=== PATIENT | female | born 1990 | race Caucasian/White ===

== ENCOUNTER 2016-09-11 15:43 | Inpatient (IN) | payer OTHER ==
[2016-09-11 16:12] VITALS: BMI 29.4
--- NOTE | 2016-09-11 18:50 | HP ---
Admission ROS [facility] Chief Complaint: I WANT TO GO TO REHAB Allergies/Adverse Reactions: Allergies Allergy/AdvReac Type Severity Reaction Status Date / Time No Known Allergies Allergy Verified 09/11/16 18:06 History of Present Illness: 26 YEARS OLD FEMALE WITH LONG HISTORY OF HEROIN NICOTINE DEPENDENCE, DENIES MEDICAL DENIES PSYCHIATRIC ISSUES LONGEST SOBRIETY IS 3 YEARS IS ADMITTED TO REHAB Exam Limitations: No Limitations - Ebola screening Have you traveled outside of the country in the last 21 days: No Have you had contact with anyone from an Ebola affected area: No Have you been sick,other than usual withdrawal symptoms: No Do you have a fever: No - Review of Systems Constitutional: No Symptoms Reported EENT: reports: No Symptoms Reported Respiratory: reports: No Symptoms reported Cardiac: reports: No Symptoms Reported GI: reports: No Symptoms Reported : reports: No Symptoms Reported Musculoskeletal: reports: No Symptoms Reported Integumentary: reports: No Symptoms Reported Neuro: reports: No Symptoms reported Endocrine: reports: No Symptoms Reported Hematology: reports: No Symptoms Reported Psychiatric: reports: Judgement Intact, Orientated x3, Depressed Other Systems: Reviewed and Negative Patient History - Patient Medical History Hx Anemia: No Hx Asthma: No Hx Chronic Obstructive Pulmonary Disease (COPD): No Hx Cancer: No Hx Cardiac Disorders: No Hx Congestive Heart Failure: No Hx Hypertension: No Hx Hypercholesterolemia: No Hx Pacemaker: No HX Cerebrovascular Accident: No Hx Seizures: No Hx Dementia: No Hx Diabetes: No Hx Gastrointestinal Disorders: No Hx Liver Disease: No Hx Genitourinary Disorders: No Hx Sexually Transmitted Disorders: No Hx Renal Disease (ESRD): No Hx Thyroid Disease: No Hx Human Immunodeficiency Virus (HIV): No Hx Hepatitis C: No Hx Depression: Yes Hx Suicide Attempt: No Hx Bipolar Disorder: No Hx Schizophrenia: No - Patient Surgical History Past Surgical History: Yes Hx Appendectomy: Yes (8 YEARS OLD) Hx Section: Yes (X 4) Other Surgical History: TUBERLIGATION Anesthesia Reaction: No - PPD History Previous Implant?: Yes Documented Results: Negative w/o proof Implanted On Prior R Admission?: No PPD to be Administered?: Yes - Reproductive History Patient is a Female of Child Bearing Age (11 -55 yrs old): Yes Last Menstrual Period: 08/11/16 Patient : No - Smoking Cessation Smoking history: Current every day smoker Have you smoked in the past 12 months: Yes Aproximately how many cigarettes per day: 20 Cigars Per Day: 0 Hx Chewing Tobacco Use: No Initiated information on smoking cessation: Yes 'Breaking Loose' booklet given: 09/11/16 - Substance & Tx. History Hx Alcohol Use: No Hx Substance Use: Yes Substance Use Type: Cocaine, Heroin, Opiates Hx Substance Use Treatment: Yes - Substances Abused Heroin Route: Injection Frequency: Daily Amount used: 60 BAGS Age of first use: 11 Date of Last Use: 09/06/16 Family Disease History - Family Disease History Family Disease History: Heart Disease: Father, CA: Mother (BREAST ) Admission Physical Exam [facility] - Vital Signs Vital Signs: Vital Signs - 24 hr 09/11/16 16:09 Temperature 98.9 F Pulse Rate 78 Respiratory 18 Rate Blood Pressure 110/63 - Physical General Appearance: Yes: No Apparent Distress, Nourished, Appropriately Dressed HEENTM: Yes: Hearing grossly Normal, Normal ENT Inspection, Normocephalic, Normal Voice Respiratory: Yes: Chest Non-Tender, Lungs Clear, Normal Breath Sounds, No Respiratory Distress, No Accessory Muscle Use Neck: Yes: Supple, Trachea in good position Breast: Yes: Breasts Symetrical Cardiology: Yes: Regular Rhythm, Regular Rate, S1, S2 Abdominal: Yes: Non Tender, Soft Genitourinary: Yes: Within Normal Limits Back: Yes: Normal Inspection Musculoskeletal: Yes: full range of Motion, Gait Steady Extremities: Yes: Normal Range of Motion, Non-Tender, Other (IV HEROIN) Neurological: Yes: Fully Oriented, Alert, Motor Strength 5/5, Normal Response, Depressed Affect Integumentary: Yes: Warm, Track Bautista Lymphatic: Yes: Within Normal Limits - Diagnostic (1) Opioid dependence with withdrawal Current Visit: Yes Status: Acute (2) Nicotine dependence Current Visit: Yes Status: Acute Qualifiers: Nicotine product type: cigarettes Substance use status: uncomplicated Qualified Code(s): F17.210 - Nicotine dependence, cigarettes, uncomplicated (3) Depression (emotion) Current Visit: Yes Status: Suspected Qualifiers: Depression Type: dysthymia Qualified Code(s): F34.1 - Dysthymic disorder Cleared for Admission [facility] - Detox or Rehab [facility] Level of Care: Observation Bed Claeared for Rehab Admission: Yes [facility] Breath Alcohol Content Breath Alcohol Content: 0 Urine Pregancy Test - Result Urine Test Results: Negative- NO Line Present Urine Drug Screen - Results Drug Screen Negative: No Urine Drug Screen Results: FELIX-Cocaine, OPI-Opiates, MTD-Methadone
[2016-09-11] MEDS ORDERED: LOPERAMIDE HCL 2 MG CAPSULE PO PRN (18:52)
[2016-09-11] MEDS ORDERED: guaiFENesin/D-METHORPHAN HB 10 ML UNIT-DOSE CUPS PO PRN (18:52)
[2016-09-11] MEDS ORDERED: MAG HYDROX/AL HYDROX/SIMETH 30 ML UNIT-DOSE CUP PO PRN (18:52)
[2016-09-11] MEDS ORDERED: MAGNESIUM CITRATE 300 ML BOTTLE PO PRN (18:52)
[2016-09-11] MEDS ORDERED: MAGNESIUM HYDROX 2400MG/30ML ORAL SUSPENSION 30 ML CUP PO PRN (18:52)
[2016-09-11] MEDS ORDERED: MENTHOL/PHENOL 1 EACH UD MM PRN (18:52)
[2016-09-11] MEDS ORDERED: NICOTINE POLACRILEX 2 MG GUM BC PRN (18:52)
[2016-09-11] MEDS ORDERED: P-EPHED 60MG/TRIPROLIDI 2.5MG TABLET PO PRN (18:52)
[2016-09-11] MEDS ORDERED: TUBERCULIN PPD 5 TU/0.1ML VIAL ID ONE (19:00)
[2016-09-11 20:15] LABS: URINE APPEARANCE CLOUDY; URINE BILIRUBIN NEGATIVE (NEGATIVE); URINE BLOOD NEGATIVE (NEGATIVE); URINE COLOR YELLOW; URINE GLUCOSE (UA) NEGATIVE (NEGATIVE); URINE KETONE NEGATIVE (NEGATIVE); URINE NITRITE POSITIVE (NEGATIVE); URINE PROTEIN NEGATIVE (NEGATIVE); URINE UROBILINOGEN NEGATIVE E.U./dl (0.2-1.0)
[2016-09-11 20:26] LABS: URINE LEUK ESTERASE 2+ (NEGATIVE)
[2016-09-11 20:46] LABS: URINE BACTERIA RARE /hpf (NONE SEEN); URINE RBC 2 /hpf (0-3); URINE WBC 30 /hpf (3-5)
[2016-09-11 20:47] LABS: URINE MUCUS RARE
[2016-09-11] MEDS: diphenhydrAMINE HCL 50 MG CAPSULE PO PRN (21:35)
[2016-09-11] MEDS: THIAMINE HCL 100 MG TABLET (FP) PO SCH (21:35)
[2016-09-11] MEDS: IBUPROFEN 400 MG TABLET (FP) PO PRN (21:36)
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
[2016-09-12] MEDS: METHADONE HCL 40 MG DISPERSABLE TABLET PO SCH (07:47)
[2016-09-12] MEDS: IBUPROFEN 400 MG TABLET (FP) PO PRN ×2 (10:07→17:44)
[2016-09-12] MEDS: NICOTINE 21 MG/24 HOURS TOPICAL PATCH TD SCH (10:07)
[2016-09-12] MEDS: PRENATAL VITAMINS W/ FOLIC ACID TABLET (FP) PO SCH (10:07)
[2016-09-12 10:14] LABS: ALBUMIN 3.6 g/dl (3.4-5.0); ANION GAP 6 (8-16); BILIRUBIN,TOTAL 0.4 mg/dL (0.2-1.0); CALCIUM 8.7 mg/dL (8.5-10.1); CO2 28 mmol/L (21-32); CREATININE 0.8 mg/dL (0.55-1.02); GLUCOSE,RANDOM 82 mg/dL (74-106); SGOT/AST 11 U/L (15-37); SGPT/ALT 16 U/L (12-78)
[2016-09-12 10:15] LABS: ALK PHOS 77 U/L (45-117)
[2016-09-12 10:57] LABS: HIV 1 & 2 AB NEGATIVE; HIV 1 AGp24 NEGATIVE
[2016-09-12 11:05] LABS: MCH 29.4 pg (25.7-33.7); MCHC 33.2 g/dl (32.0-36.0); MEAN CELL VOLUME 88.6 fl (80-96); MEAN PLT VOLUME 7.6 fl (7.5-11.1); PLATELET COUNT 316 K/MM3 (134-434); RDW 15.5 % (11.6-15.6); WHITE BLOOD COUNT 8.1 K/mm3 (4.0-10.0)
[2016-09-12] MEDS ORDERED: PNEUMOCOCCAL 23 VACCINE 0.5 ML VIAL IM ONE (12:00)
[2016-09-12] MEDS ORDERED: INFLUENZA VACCINE 45 MCG/0.5 ML (MDV 16-17) IM ONE (12:00)
[2016-09-12] MEDS ORDERED: PNEUMOC 13-VAL CONJ-DIP CRM/PF 0.5 ML DISP.SYRIN IM ONE (12:00)
[2016-09-12] MEDS: THIAMINE HCL 100 MG TABLET (FP) PO SCH (21:25)
[2016-09-12] MEDS: diphenhydrAMINE HCL 50 MG CAPSULE PO PRN (21:25)
[2016-09-13] MEDS: METHADONE HCL 40 MG DISPERSABLE TABLET PO SCH (06:35)
[2016-09-13] MEDS: NICOTINE 21 MG/24 HOURS TOPICAL PATCH TD SCH (10:11)
[2016-09-13] MEDS: PRENATAL VITAMINS W/ FOLIC ACID TABLET (FP) PO SCH (10:11)
[2016-09-13] MEDS: IBUPROFEN 400 MG TABLET (FP) PO PRN ×2 (10:13→21:30)
--- NOTE | 2016-09-13 10:35 | EKG ---
Test Reason : Blood Pressure : / mmHG Vent. Rate : 073 BPM Atrial Rate : 073 BPM P-R Int : 130 ms QRS Dur : 084 ms QT Int : 410 ms P-R-T Axes : 050 046 033 degrees QTc Int : 451 ms NORMAL SINUS RHYTHM NORMAL ECG NO PREVIOUS ECGS AVAILABLE Confirmed by CLARISSE CONN MD ([id number]) on 09/13/2016 10:35:08 AM Referred By: Confirmed By:CLARISSE CONN MD
[2016-09-13] MEDS: THIAMINE HCL 100 MG TABLET (FP) PO SCH (21:29)
[2016-09-13] MEDS: diphenhydrAMINE HCL 50 MG CAPSULE PO PRN (21:29)
[2016-09-14] MEDS: METHADONE HCL 40 MG DISPERSABLE TABLET PO SCH (06:13)
[2016-09-14] MEDS: hydrOXYzine PAMOATE 50 MG CAPSULE (FP) PO PRN ×3 (06:27→21:14)
[2016-09-14] MEDS: NICOTINE 21 MG/24 HOURS TOPICAL PATCH TD SCH (10:02)
[2016-09-14] MEDS: PRENATAL VITAMINS W/ FOLIC ACID TABLET (FP) PO SCH (10:02)
[2016-09-14] MEDS: THIAMINE HCL 100 MG TABLET (FP) PO SCH (21:13)
[2016-09-14] MEDS: diphenhydrAMINE HCL 50 MG CAPSULE PO PRN (23:22)
[2016-09-15] MEDS: METHADONE HCL 40 MG DISPERSABLE TABLET PO SCH (06:57)
[2016-09-15] MEDS: IBUPROFEN 400 MG TABLET (FP) PO PRN ×2 (07:00→22:18)
[2016-09-15] MEDS: hydrOXYzine PAMOATE 50 MG CAPSULE (FP) PO PRN ×4 (07:02→21:05)
[2016-09-15] MEDS: PRENATAL VITAMINS W/ FOLIC ACID TABLET (FP) PO SCH (09:56)
[2016-09-15] MEDS: NICOTINE 21 MG/24 HOURS TOPICAL PATCH TD SCH (09:56)
[2016-09-15] MEDS: THIAMINE HCL 100 MG TABLET (FP) PO SCH (21:05)
[2016-09-15] MEDS: diphenhydrAMINE HCL 50 MG CAPSULE PO PRN (22:18)
[2016-09-16] MEDS: METHADONE HCL 40 MG DISPERSABLE TABLET PO SCH (06:22)
[2016-09-16] MEDS: IBUPROFEN 400 MG TABLET (FP) PO PRN ×2 (06:25→23:06)
[2016-09-16] MEDS: hydrOXYzine PAMOATE 50 MG CAPSULE (FP) PO PRN ×3 (06:25→21:01)
[2016-09-16] MEDS: NICOTINE 21 MG/24 HOURS TOPICAL PATCH TD SCH (09:55)
[2016-09-16] MEDS: PRENATAL VITAMINS W/ FOLIC ACID TABLET (FP) PO SCH (09:55)
[2016-09-16] MEDS: THIAMINE HCL 100 MG TABLET (FP) PO SCH (21:01)
[2016-09-16] MEDS: diphenhydrAMINE HCL 50 MG CAPSULE PO PRN (23:06)
[2016-09-17] MEDS: METHADONE HCL 40 MG DISPERSABLE TABLET PO SCH (06:17)
[2016-09-17] MEDS: hydrOXYzine PAMOATE 50 MG CAPSULE (FP) PO PRN ×4 (06:22→21:29)
[2016-09-17] MEDS: IBUPROFEN 400 MG TABLET (FP) PO PRN (06:22)
[2016-09-17] MEDS: PRENATAL VITAMINS W/ FOLIC ACID TABLET (FP) PO SCH (10:05)
[2016-09-17] MEDS: NICOTINE 21 MG/24 HOURS TOPICAL PATCH TD SCH (10:06)
[2016-09-17] MEDS: THIAMINE HCL 100 MG TABLET (FP) PO SCH (21:29)
[2016-09-18] MEDS: METHADONE HCL 40 MG DISPERSABLE TABLET PO SCH (06:06)
[2016-09-18] MEDS: IBUPROFEN 400 MG TABLET (FP) PO PRN ×3 (06:09→20:40)
[2016-09-18] MEDS: hydrOXYzine PAMOATE 50 MG CAPSULE (FP) PO PRN ×4 (06:09→19:32)
[2016-09-18] MEDS: NICOTINE 21 MG/24 HOURS TOPICAL PATCH TD SCH (10:10)
[2016-09-18] MEDS: PRENATAL VITAMINS W/ FOLIC ACID TABLET (FP) PO SCH (10:10)
[2016-09-18] MEDS ORDERED: LIDOCAINE VISCOUS 2% ORAL/TOP 20 ML UNIT-DOSE CUP MM PRN (15:49)
[2016-09-18] MEDS: THIAMINE HCL 100 MG TABLET (FP) PO SCH (21:48)
[2016-09-19] MEDS: ACETAMINOPHEN 325 MG TABLET (FP) PO PRN (01:33)
[2016-09-19] MEDS: hydrOXYzine PAMOATE 50 MG CAPSULE (FP) PO PRN ×5 (01:33→21:08)
[2016-09-19] MEDS: METHADONE HCL 40 MG DISPERSABLE TABLET PO SCH (06:07)
[2016-09-19] MEDS: IBUPROFEN 400 MG TABLET (FP) PO PRN ×3 (06:07→17:00)
[2016-09-19] MEDS: PRENATAL VITAMINS W/ FOLIC ACID TABLET (FP) PO SCH (10:12)
[2016-09-19] MEDS: NICOTINE 21 MG/24 HOURS TOPICAL PATCH TD SCH (10:13)
[2016-09-19] MEDS: THIAMINE HCL 100 MG TABLET (FP) PO SCH (21:06)
[2016-09-20] MEDS: METHADONE HCL 40 MG DISPERSABLE TABLET PO SCH (06:34)
[2016-09-20] MEDS: IBUPROFEN 400 MG TABLET (FP) PO PRN ×2 (06:35→15:34)
[2016-09-20] MEDS: hydrOXYzine PAMOATE 50 MG CAPSULE (FP) PO PRN ×4 (06:35→20:03)
[2016-09-20] MEDS: PRENATAL VITAMINS W/ FOLIC ACID TABLET (FP) PO SCH (10:45)
[2016-09-20] MEDS: NICOTINE 21 MG/24 HOURS TOPICAL PATCH TD SCH (10:45)
[2016-09-20] MEDS: ACETAMINOPHEN 325 MG TABLET (FP) PO PRN (10:47)
[2016-09-20] MEDS: THIAMINE HCL 100 MG TABLET (FP) PO SCH (21:20)
[2016-09-20] MEDS: diphenhydrAMINE HCL 50 MG CAPSULE PO PRN ×2 (21:20→22:56)
[2016-09-21] MEDS: METHADONE HCL 40 MG DISPERSABLE TABLET PO SCH (06:26)
[2016-09-21] MEDS: hydrOXYzine PAMOATE 50 MG CAPSULE (FP) PO PRN ×3 (06:28→21:22)
[2016-09-21] MEDS: NICOTINE 21 MG/24 HOURS TOPICAL PATCH TD SCH (10:10)
[2016-09-21] MEDS: PRENATAL VITAMINS W/ FOLIC ACID TABLET (FP) PO SCH (10:10)
[2016-09-21] MEDS: THIAMINE HCL 100 MG TABLET (FP) PO SCH (21:22)
[2016-09-21] MEDS: IBUPROFEN 400 MG TABLET (FP) PO PRN (21:23)
[2016-09-21] MEDS: diphenhydrAMINE HCL 50 MG CAPSULE PO PRN (23:21)
[2016-09-22] MEDS: hydrOXYzine PAMOATE 50 MG CAPSULE (FP) PO PRN ×4 (06:13→22:11)
[2016-09-22] MEDS: METHADONE HCL 40 MG DISPERSABLE TABLET PO SCH (06:13)
[2016-09-22] MEDS: PRENATAL VITAMINS W/ FOLIC ACID TABLET (FP) PO SCH (10:03)
[2016-09-22] MEDS: NICOTINE 21 MG/24 HOURS TOPICAL PATCH TD SCH (10:03)
[2016-09-22] MEDS: IBUPROFEN 400 MG TABLET (FP) PO PRN (14:22)
[2016-09-22] MEDS: THIAMINE HCL 100 MG TABLET (FP) PO SCH (21:21)
[2016-09-22] MEDS: diphenhydrAMINE HCL 50 MG CAPSULE PO PRN (21:21)
[2016-09-23] MEDS: hydrOXYzine PAMOATE 50 MG CAPSULE (FP) PO PRN ×4 (06:19→21:08)
[2016-09-23] MEDS: METHADONE HCL 40 MG DISPERSABLE TABLET PO SCH (06:19)
[2016-09-23] MEDS: PRENATAL VITAMINS W/ FOLIC ACID TABLET (FP) PO SCH (09:56)
[2016-09-23] MEDS: NICOTINE 21 MG/24 HOURS TOPICAL PATCH TD SCH (09:57)
[2016-09-23] MEDS: IBUPROFEN 400 MG TABLET (FP) PO PRN (14:59)
[2016-09-23] MEDS: THIAMINE HCL 100 MG TABLET (FP) PO SCH (21:08)
[2016-09-23] MEDS: diphenhydrAMINE HCL 50 MG CAPSULE PO PRN (23:19)
[2016-09-24] MEDS ORDERED: METHADONE HCL 10 MG TABLET ONE (05:06)
[2016-09-24] MEDS ORDERED: METHADONE HCL 40 MG DISPERSABLE TABLET ONE (05:06)
[2016-09-24] MEDS ORDERED: METHADONE HCL 40 MG DISPERSABLE TABLET PO SCH ×2 (06:00)
[2016-09-24] MEDS ORDERED: METHADONE 80 MG, METHADONE 30 MG PO SCH (06:00)
[2016-09-24] MEDS: hydrOXYzine PAMOATE 50 MG CAPSULE (FP) PO PRN ×4 (06:22→21:11)
[2016-09-24] MEDS: NICOTINE 21 MG/24 HOURS TOPICAL PATCH TD SCH (10:12)
[2016-09-24] MEDS: PRENATAL VITAMINS W/ FOLIC ACID TABLET (FP) PO SCH (10:12)
--- NOTE | 2016-09-24 13:47 | PN ---
[facility] Progress Note Note: pt felt uncomfortable on her requested lower dose of methadone 110mg . Pt now requested her usual dose of 120mg /d
[2016-09-24] MEDS: THIAMINE HCL 100 MG TABLET (FP) PO SCH (21:11)
[2016-09-24] MEDS: diphenhydrAMINE HCL 50 MG CAPSULE PO PRN (22:02)
[2016-09-25] MEDS: METHADONE HCL 40 MG DISPERSABLE TABLET PO SCH (06:20)
[2016-09-25] MEDS: hydrOXYzine PAMOATE 50 MG CAPSULE (FP) PO PRN ×4 (06:24→21:09)
[2016-09-25] MEDS: PRENATAL VITAMINS W/ FOLIC ACID TABLET (FP) PO SCH (10:00)
[2016-09-25] MEDS: NICOTINE 21 MG/24 HOURS TOPICAL PATCH TD SCH (10:00)
--- NOTE | 2016-09-25 12:32 | PN ---
Psychiatric Progress Note Vital Signs: Vital Signs Period Temp Pulse Resp BP Sys/Calles Pulse Ox Last 24 Hr 98.2 F 81 18-18 104/68 Date of Session: 09/25/16 Chief Complaint:: Insomnia HPI: Patient addressing Opoid Dependence comorbid with Nicotine Dependence ROS: S/P Tubal ligation Current Medications: Active Medications Generic Name Dose Route Start Last Admin Trade Name Freq PRN Reason Stop Dose Admin Acetaminophen 650 mg 09/11/16 18:52 09/20/16 10:47 Tylenol - PO 650 mg Q4H PRN Administration PAIN Al Hydroxide/Mg Hydroxide 30 ml 09/11/16 18:52 Mylanta Oral Suspension - PO Q6H PRN DYSPEPSIA Diphenhydramine HCl 50 mg 09/11/16 18:52 09/24/16 22:02 Benadryl - PO 50 mg HSMR1 PRN Administration INSOMNIA Eucalyptus/Menthol/Phenol/Sorbitol 1 each 09/11/16 18:52 Cepastat Lozenge - MM Q4H PRN SORE THROAT Guaifenesin 10 ml 09/11/16 18:52 Robitussin Dm - PO Q6H PRN COUGH Hydroxyzine Pamoate 50 mg 09/11/16 18:52 09/25/16 10:00 Vistaril - PO 50 mg Q4H PRN Administration AGITATION Ibuprofen 400 mg 09/11/16 18:52 09/23/16 14:59 Motrin - PO 400 mg Q6H PRN Administration SEVERE PAIN Lidocaine HCl 20 ml 09/18/16 15:49 09/18/16 22:14 Xylocaine 2% Viscous Oral - MM 20 ml Q6HPO PRN Administration ORAL PAIN/MOUTH SORES Loperamide HCl 4 mg 09/11/16 18:52 Imodium - PO Q6H PRN DIARRHEA Magnesium Citrate 300 ml 09/11/16 18:52 Citroma - PO Q48H PRN CONSTIPATION Magnesium Hydroxide 30 ml 09/11/16 18:52 Milk Of Magnesia - PO DAILY PRN CONSTIPATION Methadone HCl 120 mg 09/25/16 06:00 09/25/16 06:20 Dolophine - PO 120 mg DAILY@0600 MERARI Administration Nicotine 21 mg 09/12/16 10:00 09/25/16 10:00 Nicoderm Patch - TD 21 mg DAILY MERARI Administration Nicotine Polacrilex 2 mg 09/11/16 18:52 Nicorette Gum - BC Q2H PRN NICOTINE REPLACEMENT RX Multivit/Folic Acid/Iron 1 tab 09/12/16 10:00 09/25/16 10:00 Vitamins (Sjr) - PO 1 tab DAILY MERARI Administration Pseudoephedrine/Triprolidine 1 combo 09/11/16 18:52 Actifed - PO TID PRN NASAL CONGESTION Thiamine HCl 100 mg 09/11/16 22:00 09/24/16 21:11 Vitamin B1 - PO 100 mg HS MERARI Administration Medication(s) Change(s): Start Trazadone 100 mg po HS Current Side Effect: No Lab tests ordered: Yes Lab tests reviewed: Yes Provider note:: Patient reports experiencing difficulty to sleep. Told aligner typewriter that she has not been able to sleep well despite taking Benadryl 50 mg po at bedtime. Consequently, she has not been able to stay fully awake during the day and often sleeps when attending group impacting on her group participation. Requests to be order sleep med stronger than Benadryl. Benefits vs Risks of Trazadone in addition to sleep hygiene was discussed with patient and she agreed to try it Total face to face time:: 25 Mental Status Exam - Mental Status Exam Alert and Oriented to: Time, Place, Person Cognitive Function: Fair Patient Appearance: Well Groomed Mood: Hopeful, Euthymic Affect: Appropriate Patient Behavior: Cooperative Speech Pattern: Clear Voice Loudness: Normal Thought Process: Intact Thought Disorder: Not Present Hallucinations: Denies Suicidal Ideation: Denies Homicidal Ideation: Denies Insight/Judgement: Fair Sleep: Poorly Appetite: Good Muscle strength/Tone: Normal Gait/Station: Normal Psychiatric Treatment Plan - Problem List (1) Opioid dependence with withdrawal Current Visit: Yes (2) Nicotine dependence Current Visit: Yes Qualifiers: Nicotine product type: cigarettes Substance use status: uncomplicated Qualified Code(s): F17.210 - Nicotine dependence, cigarettes, uncomplicated Initial treatment plan: 1) Start Trazadone 100 mg po HS. 2) Monitor progress
[2016-09-25] MEDS: traZODone HCL 100 MG TABLET (FP) PO SCH (21:08)
[2016-09-25] MEDS: THIAMINE HCL 100 MG TABLET (FP) PO SCH (21:08)
[2016-09-26] MEDS: hydrOXYzine PAMOATE 50 MG CAPSULE (FP) PO PRN ×4 (06:40→21:14)
[2016-09-26] MEDS: METHADONE HCL 40 MG DISPERSABLE TABLET PO SCH (06:40)
[2016-09-26] MEDS: NICOTINE 21 MG/24 HOURS TOPICAL PATCH TD SCH (10:02)
[2016-09-26] MEDS: PRENATAL VITAMINS W/ FOLIC ACID TABLET (FP) PO SCH (10:02)
[2016-09-26] MEDS: THIAMINE HCL 100 MG TABLET (FP) PO SCH (21:14)
[2016-09-26] MEDS: traZODone HCL 100 MG TABLET (FP) PO SCH (21:14)
[2016-09-26] MEDS: diphenhydrAMINE HCL 50 MG CAPSULE PO PRN (22:38)
[2016-09-27] MEDS: METHADONE HCL 40 MG DISPERSABLE TABLET PO SCH (06:13)
[2016-09-27] MEDS: hydrOXYzine PAMOATE 50 MG CAPSULE (FP) PO PRN ×3 (06:17→14:02)
[2016-09-27] MEDS: PRENATAL VITAMINS W/ FOLIC ACID TABLET (FP) PO SCH (10:03)
[2016-09-27] MEDS: NICOTINE 21 MG/24 HOURS TOPICAL PATCH TD SCH (10:03)
[2016-09-27] MEDS: diphenhydrAMINE HCL 50 MG CAPSULE PO PRN ×2 (21:24→23:50)
[2016-09-27] MEDS: traZODone HCL 100 MG TABLET (FP) PO SCH (21:24)
[2016-09-27] MEDS: THIAMINE HCL 100 MG TABLET (FP) PO SCH (21:24)
[2016-09-28] MEDS: hydrOXYzine PAMOATE 50 MG CAPSULE (FP) PO PRN ×4 (06:19→21:18)
[2016-09-28] MEDS: METHADONE HCL 40 MG DISPERSABLE TABLET PO SCH (06:19)
[2016-09-28] MEDS: PRENATAL VITAMINS W/ FOLIC ACID TABLET (FP) PO SCH (10:03)
[2016-09-28] MEDS: NICOTINE 21 MG/24 HOURS TOPICAL PATCH TD SCH (10:03)
[2016-09-28] MEDS: DOCUSATE SODIUM 100 MG CAPSULE (FP) PO PRN ×2 (10:04→21:18)
[2016-09-28] MEDS: IBUPROFEN 400 MG TABLET (FP) PO PRN (20:07)
[2016-09-28] MEDS: THIAMINE HCL 100 MG TABLET (FP) PO SCH (21:18)
[2016-09-28] MEDS: traZODone HCL 100 MG TABLET (FP) PO SCH (21:18)
[2016-09-28] MEDS: diphenhydrAMINE HCL 50 MG CAPSULE PO PRN (22:34)
[2016-09-29] MEDS: METHADONE HCL 40 MG DISPERSABLE TABLET PO SCH (06:49)
[2016-09-29] MEDS: hydrOXYzine PAMOATE 50 MG CAPSULE (FP) PO PRN ×4 (06:49→21:29)
[2016-09-29] MEDS: NICOTINE 21 MG/24 HOURS TOPICAL PATCH TD SCH (10:36)
[2016-09-29] MEDS: PRENATAL VITAMINS W/ FOLIC ACID TABLET (FP) PO SCH (10:36)
[2016-09-29] MEDS: DOCUSATE SODIUM 100 MG CAPSULE (FP) PO PRN (14:04)
[2016-09-29] MEDS: IBUPROFEN 400 MG TABLET (FP) PO PRN (20:05)
[2016-09-29] MEDS: traZODone HCL 100 MG TABLET (FP) PO SCH (21:29)
[2016-09-29] MEDS: THIAMINE HCL 100 MG TABLET (FP) PO SCH (21:29)
[2016-09-29] MEDS: diphenhydrAMINE HCL 50 MG CAPSULE PO PRN (22:33)
[2016-09-30] MEDS: hydrOXYzine PAMOATE 50 MG CAPSULE (FP) PO PRN ×3 (06:10→14:10)
[2016-09-30] MEDS: METHADONE HCL 40 MG DISPERSABLE TABLET PO SCH (06:10)
[2016-09-30] MEDS: DOCUSATE SODIUM 100 MG CAPSULE (FP) PO PRN (06:13)
[2016-09-30] MEDS: NICOTINE 21 MG/24 HOURS TOPICAL PATCH TD SCH (10:02)
[2016-09-30] MEDS: PRENATAL VITAMINS W/ FOLIC ACID TABLET (FP) PO SCH (10:03)
[2016-09-30] MEDS: LACTULOSE 20 GM/30 ML UDC (FOR ORAL USE ONLY) PO PRN (14:10)
[2016-09-30] MEDS: diphenhydrAMINE HCL 50 MG CAPSULE PO PRN (21:01)
[2016-09-30] MEDS: THIAMINE HCL 100 MG TABLET (FP) PO SCH (21:01)
[2016-09-30] MEDS: traZODone HCL 100 MG TABLET (FP) PO SCH (21:01)
[2016-10-01] MEDS: METHADONE HCL 40 MG DISPERSABLE TABLET PO SCH (06:30)
[2016-10-01] MEDS: hydrOXYzine PAMOATE 50 MG CAPSULE (FP) PO PRN ×3 (06:30→13:14)
--- NOTE | 2016-10-01 07:46 | PN ---
Psychiatric Progress Note Vital Signs: Vital Signs Period Temp Pulse Resp BP Sys/Calles Pulse Ox Last 24 Hr 98.2 F 93 16-20 109/67 Date of Session: 10/01/16 Chief Complaint:: Psychiatrist Discharge Note HPI: Patient addressing Opoid Dependence comorbid Nicotine Dependence ROS: S/P Tubal ligation Current Medications: Active Medications Generic Name Dose Route Start Last Admin Trade Name Freq PRN Reason Stop Dose Admin Al Hydroxide/Mg Hydroxide 30 ml 09/11/16 18:52 Mylanta Oral Suspension - PO Q6H PRN DYSPEPSIA Diphenhydramine HCl 50 mg 09/11/16 18:52 09/30/16 21:01 Benadryl - PO 50 mg HSMR1 PRN Administration INSOMNIA Eucalyptus/Menthol/Phenol/Sorbitol 1 each 09/11/16 18:52 Cepastat Lozenge - MM Q4H PRN SORE THROAT Guaifenesin 10 ml 09/11/16 18:52 Robitussin Dm - PO Q6H PRN COUGH Hydroxyzine Pamoate 50 mg 09/11/16 18:52 10/01/16 06:30 Vistaril - PO 50 mg Q4H PRN Administration AGITATION Ibuprofen 400 mg 09/11/16 18:52 09/29/16 20:05 Motrin - PO 400 mg Q6H PRN Administration SEVERE PAIN Lactulose 20 gm 09/30/16 13:25 09/30/16 14:10 Cephulac (Oral Use) PO 20 gm TID PRN Administration CONSTIPATION Lidocaine HCl 20 ml 09/18/16 15:49 09/18/16 22:14 Xylocaine 2% Viscous Oral - MM 20 ml Q6HPO PRN Administration ORAL PAIN/MOUTH SORES Loperamide HCl 4 mg 09/11/16 18:52 Imodium - PO Q6H PRN DIARRHEA Magnesium Citrate 300 ml 09/11/16 18:52 09/29/16 21:30 Citroma - PO 300 ml Q48H PRN Administration CONSTIPATION Magnesium Hydroxide 30 ml 09/11/16 18:52 09/29/16 10:38 Milk Of Magnesia - PO 30 ml DAILY PRN Administration CONSTIPATION Methadone HCl 120 mg 10/01/16 06:00 10/01/16 06:30 Dolophine - PO 10/07/16 05:59 120 mg DAILY@0600 MERARI Administration Nicotine 21 mg 09/12/16 10:00 09/30/16 10:02 Nicoderm Patch - TD 21 mg DAILY MERARI Administration Nicotine Polacrilex 2 mg 09/11/16 18:52 Nicorette Gum - BC Q2H PRN NICOTINE REPLACEMENT RX Multivit/Folic Acid/Iron 1 tab 09/12/16 10:00 09/30/16 10:03 Vitamins (Sjr) - PO 1 tab DAILY MERARI Administration Pseudoephedrine/Triprolidine 1 combo 09/11/16 18:52 Actifed - PO TID PRN NASAL CONGESTION Thiamine HCl 100 mg 09/11/16 22:00 09/30/16 21:01 Vitamin B1 - PO 100 mg HS MERARI Administration Trazodone HCl 100 mg 09/25/16 22:00 09/30/16 21:01 Desyrel - PO 100 mg HS MERARI Administration Current Side Effect: No Lab tests ordered: Yes Lab tests reviewed: Yes Provider note:: Patient will complete this program on 10/02/16. She has met her treatment goals and will continue to address his issues in outpatient treatment at [facility]. She verbalized understanding of the negative consequences of her addiction and from her participation in this program, she has learned to identify her triggers. She responded well to Trazadone 100 mg po HS for insomnia. Script for 30 days supply of that medication will be electronically transmitted to [facility] at [address] [place] [address]. She is stable for discharge on Total face to face time:: 35 Mental Status Exam - Mental Status Exam Alert and Oriented to: Time, Place, Person Cognitive Function: Fair Patient Appearance: Well Groomed Mood: Hopeful, Euthymic Affect: Appropriate Patient Behavior: Cooperative Speech Pattern: Clear Voice Loudness: Normal Thought Process: Intact Thought Disorder: Not Present Hallucinations: Denies Suicidal Ideation: Denies Homicidal Ideation: Denies Insight/Judgement: Fair Sleep: Fair Appetite: Good Muscle strength/Tone: Normal Gait/Station: Normal Psychiatric Treatment Plan - Problem List (1) Opioid dependence with withdrawal Current Visit: Yes (2) Nicotine dependence Current Visit: Yes Qualifiers: Nicotine product type: cigarettes Substance use status: uncomplicated Qualified Code(s): F17.210 - Nicotine dependence, cigarettes, uncomplicated Initial treatment plan: Patient will be discharged tomorrow and [facility]
[2016-10-01] MEDS: PRENATAL VITAMINS W/ FOLIC ACID TABLET (FP) PO SCH (09:51)
[2016-10-01] MEDS: NICOTINE 21 MG/24 HOURS TOPICAL PATCH TD SCH (09:51)
[2016-10-01] MEDS: LACTULOSE 20 GM/30 ML UDC (FOR ORAL USE ONLY) PO PRN ×2 (09:53→21:08)
[2016-10-01] MEDS: IBUPROFEN 400 MG TABLET (FP) PO PRN (13:14)
[2016-10-01] MEDS: traZODone HCL 100 MG TABLET (FP) PO SCH (21:06)
[2016-10-01] MEDS: diphenhydrAMINE HCL 50 MG CAPSULE PO PRN (21:06)
[2016-10-01] MEDS: THIAMINE HCL 100 MG TABLET (FP) PO SCH (21:06)
[2016-10-02] MEDS: hydrOXYzine PAMOATE 50 MG CAPSULE (FP) PO PRN ×2 (06:10→09:30)
[2016-10-02] MEDS: METHADONE HCL 40 MG DISPERSABLE TABLET PO SCH (06:11)
[2016-10-02 06:45] VITALS: BP 106/58; PULSE 76; TEMP 97.6
[2016-10-02] MEDS: PRENATAL VITAMINS W/ FOLIC ACID TABLET (FP) PO SCH (09:30)
[2016-10-02] MEDS: NICOTINE 21 MG/24 HOURS TOPICAL PATCH TD SCH (09:31)
== END 2016-10-02 09:45 | disposition home or self-care (01) | DRG 772 ==
LOC: YASAS 15:43 → Y3W 18:53
PROVIDERS: ADMIT Psychiatry & Neurology Psychiatry; ATTEND Psychiatry & Neurology Psychiatry
PROC: HZ42ZZZ Group Counseling for Substance Abuse Treatment, Cognitive-Behavioral (ICD-10-PCS; principal; 2016-09-11)
DX: F11.23 Opioid dependence with withdrawal (principal); F17.210 Nicotine dependence, cigarettes, uncomplicated; F34.1 Dysthymic disorder
CPT/HCPCS: 36415; 80053; 81003; 81015; 85027; 86593; 86803; 87389; 87522; 90732; 93005; 93010; G0009

== ENCOUNTER 2017-07-14 19:36 | Inpatient (IN) | payer OTHER ==
[2017-07-14 21:46] VITALS: BMI 32.1
--- NOTE | 2017-07-14 21:59 | HP ---
<Mag Oconnor - Last Filed: 07/16/17 21:58> COWS - Scale Sweatin= Chills/Flushing Admission [facility] Chief Complaint: Heroin dependence Allergies/Adverse Reactions: Allergies Allergy/AdvReac Type Severity Reaction Status Date / Time No Known Allergies Allergy Verified 09/11/16 18:06 History of Present Illness: 26 years old female with complaint of heroin dependence is admitted to rehab. Patient is on MMTP at [facility] and she states that she took her methadone 90mg oral today. Dose is to be verified by the nurse. Exam Limitations: No Limitations - Ebola screening Have you traveled outside of the country in the last 21 days: No Have you had contact with anyone from an Ebola affected area: No Have you been sick,other than usual withdrawal symptoms: No Do you have a fever: No - Review of Systems Constitutional: No Symptoms Reported EENT: reports: No Symptoms Reported Respiratory: reports: No Symptoms reported Cardiac: reports: No Symptoms Reported GI: reports: No Symptoms Reported : reports: No Symptoms Reported Musculoskeletal: reports: No Symptoms Reported Integumentary: reports: No Symptoms Reported Neuro: reports: No Symptoms reported Endocrine: reports: No Symptoms Reported Hematology: reports: No Symptoms Reported Psychiatric: reports: Mood/Affect Appropiate, Orientated x3 Other Systems: Reviewed and Negative Patient History - Patient Medical History Hx Anemia: No Hx Asthma: No Hx Chronic Obstructive Pulmonary Disease (COPD): No Hx Cancer: No Hx Cardiac Disorders: No Hx Congestive Heart Failure: No Hx Hypertension: No Hx Hypercholesterolemia: No Hx Pacemaker: No HX Cerebrovascular Accident: No Hx Seizures: No Hx Dementia: No Hx Diabetes: No Hx Gastrointestinal Disorders: No Hx Liver Disease: No Hx Genitourinary Disorders: No Hx Sexually Transmitted Disorders: No Hx Renal Disease (ESRD): No Hx Thyroid Disease: No Hx Human Immunodeficiency Virus (HIV): No Hx Hepatitis C: No Hx Depression: No Hx Suicide Attempt: No Hx Bipolar Disorder: No Hx Schizophrenia: No - Patient Surgical History Past Surgical History: Yes Hx Neurologic Surgery: No Hx Cataract Extraction: No Hx Cardiac Surgery: No Hx Lung Surgery: No Hx Breast Surgery: No Hx Breast Biopsy: No Hx Abdominal Surgery: No Hx Appendectomy: Yes (8 YEARS OLD) Hx Cholecystectomy: No Hx Genitourinary Surgery: No Hx Section: Yes (X 4) Other Surgical History: TUBAL LIGATION October. Anesthesia Reaction: No - PPD History Previous Implant?: Yes Documented Results: Negative w/o proof PPD to be Administered?: Yes - Reproductive History Patient is a Female of Child Bearing Age (11 -55 yrs old): Yes Last Menstrual Period: 07/14/17 (Menstruating today) Patient : No - Smoking Cessation Smoking history: Current every day smoker Have you smoked in the past 12 months: Yes Aproximately how many cigarettes per day: 20 Cigars Per Day: 0 Hx Chewing Tobacco Use: No Initiated information on smoking cessation: Yes 'Breaking Loose' booklet given: 07/16/17 - Substance & Tx. History Hx Alcohol Use: No Hx Substance Use: Yes (Heroin, Marijuana, Methadone) Substance Use Type: Heroin, Marijuana Hx Substance Use Treatment: Yes ([facility] 09/10/2016) - Substances Abused Heroin Route: Inhalation Frequency: Daily Amount used: 10 bags Age of first use: 12 Date of Last Use: 07/12/17 Marijuana/Hashish Frequency: 3-6 times per week Amount used: 4 francisca Age of first use: 10 Date of Last Use: 07/13/17 Family Disease History - Family Disease History Family Disease History: Heart Disease: Father, CA: Mother (BREAST CA) Admission Physical Exam S - Vital Signs Vital Signs: Vital Signs - 24 hr 07/14/17 21:44 Temperature 96.9 F L Pulse Rate 74 Respiratory 18 Rate Blood Pressure 116/94 - Physical General Appearance: Yes: Within Normal Limits HEENTM: Yes: Within Normal Limits Respiratory: Yes: Lungs Clear, Normal Breath Sounds, No Respiratory Distress Neck: Yes: Supple Breast: Yes: Breast Exam Deferred, Surgical Scar (Lower abdomen scar) Cardiology: Yes: Regular Rhythm, Regular Rate, S1, S2 Abdominal: Yes: Normal Bowel Sounds, Non Tender, Soft Genitourinary: Yes: Within Normal Limits Back: Yes: Normal Inspection Musculoskeletal: Yes: Within Normal Limits Extremities: Yes: Within Normal Limits Neurological: Yes: Within Normal Limits Integumentary: Yes: Warm Lymphatic: Yes: Within Normal Limits - Diagnostic (1) Opioid dependence with withdrawal Current Visit: Yes Status: Chronic (2) Nicotine dependence Current Visit: Yes Status: Chronic QualifierTitle: Nicotine product type: cigarettes Substance use status: uncomplicated Qualified Code(s): F17.210 - Nicotine dependence, cigarettes, uncomplicated Cleared for Admission [facility] - [facility] Rehab [facility] Level of Care: Observation Bed Claeared for Rehab Admission: Yes [facility] Breath Alcohol Content Breath Alcohol Content: 0 Urine Drug Screen - Results Drug Screen Negative: No Urine Drug Screen Results: THC-Marijuana, OPI-Opiates, MTD-Methadone <Arthur Nathan - Last Filed: 07/17/17 12:56> COWS - Scale Resting Pulse: 0= [place] 80 or Below Sweatin= Chills/Flushing Restless Observation: 1= Difficult to Sit Still Pupil Size: 1= Pupils >than Normal Bone or Joint Aches: 1= Mild Discomfort Runny Nose/ Eye Tearin= Nasal Congestion GI Upset > 30mins: 2= Nausea/Diarrhea Tremor Observation: 2= Slight Tremor Visible Yawning Observation: 1= 1-2x During Session Anxiety or Irritability: 1=Feels Anxious/Irritable Goose Flesh Skin: 3=Piloerection COWS Score: 14 Admission Physical Exam [facility] - Vital Signs Vital Signs: Vital Signs - 24 hr 07/17/17 07/17/17 07/17/17 00:30 03:30 06:50 Temperature 98.0 F Pulse Rate 76 Respiratory 18 18 18 Rate Blood Pressure 104/69
[2017-07-14] MEDS ORDERED: guaiFENesin/D-METHORPHAN HB 10 ML UNIT-DOSE CUPS PO PRN (22:14)
[2017-07-14] MEDS ORDERED: ACETAMINOPHEN 325 MG TABLET (FP) PO PRN (22:14)
[2017-07-14] MEDS ORDERED: MAGNESIUM CITRATE 300 ML BOTTLE PO PRN (22:14)
[2017-07-14] MEDS ORDERED: MENTHOL/PHENOL 1 EACH UD MM PRN (22:14)
[2017-07-14] MEDS ORDERED: P-EPHED 60MG/TRIPROLIDI 2.5MG TABLET PO PRN (22:14)
[2017-07-14] MEDS ORDERED: LOPERAMIDE HCL 2 MG CAPSULE PO PRN (22:14)
[2017-07-14] MEDS ORDERED: MAG HYDROX/AL HYDROX/SIMETH 30 ML UNIT-DOSE CUP PO PRN (22:14)
[2017-07-14] MEDS ORDERED: NICOTINE POLACRILEX 2 MG GUM BC PRN (22:14)
[2017-07-15 00:15] LABS: URINE APPEARANCE SLCLOUDY; URINE BILIRUBIN NEGATIVE (NEGATIVE); URINE BLOOD NEGATIVE (NEGATIVE); URINE COLOR DKYELLOW; URINE GLUCOSE (UA) NEGATIVE (NEGATIVE); URINE KETONE TRACE (NEGATIVE); URINE NITRITE NEGATIVE (NEGATIVE); URINE PROTEIN NEGATIVE (NEGATIVE); URINE UROBILINOGEN NEGATIVE mg/dL (0.2-1.0)
[2017-07-15] MEDS: hydrOXYzine PAMOATE 50 MG CAPSULE (FP) PO PRN ×3 (02:28→21:13)
[2017-07-15] MEDS ORDERED: METHADONE HCL 40 MG DISPERSABLE TABLET PO SCH (06:00)
[2017-07-15] MEDS ORDERED: METHADONE HCL 10 MG TABLET ONE (06:55)
[2017-07-15] MEDS ORDERED: METHADONE HCL 40 MG DISPERSABLE TABLET ONE (06:56)
[2017-07-15] MEDS: METHADONE 80 MG, METHADONE 10 MG PO SCH (07:41)
[2017-07-15 09:56] LABS: MCH 29.2 pg (25.7-33.7); MCHC 33.2 g/dl (32.0-36.0); MEAN CELL VOLUME 88.1 fl (80-96); MEAN PLT VOLUME 9.4 fl (7.5-11.1); PLATELET COUNT 334 K/MM3 (134-434); RDW 14.8 % (11.6-15.6); WHITE BLOOD COUNT 9.8 K/mm3 (4.0-10.0)
[2017-07-15 10:17] LABS: ALBUMIN 3.4 g/dl (3.4-5.0); ANION GAP 11 (8-16); CALCIUM 8.1 mg/dL (8.5-10.1); CO2 24 mmol/L (21-32); CREATININE 0.8 mg/dL (0.55-1.02); GLUCOSE,RANDOM 94 mg/dL (74-106); SGPT/ALT 14 U/L (12-78)
[2017-07-15 10:19] LABS: ALK PHOS 80 U/L (45-117); BILIRUBIN,TOTAL 0.3 mg/dL (0.2-1.0); TOT PROT 6.7 g/dl (6.4-8.2)
--- NOTE | 2017-07-15 10:25 | EKG ---
Test Reason : Blood Pressure : / mmHG Vent. Rate : 068 BPM Atrial Rate : 068 BPM P-R Int : 136 ms QRS Dur : 088 ms QT Int : 430 ms P-R-T Axes : 059 046 036 degrees QTc Int : 457 ms NORMAL SINUS RHYTHM WITH SINUS ARRHYTHMIA NORMAL ECG WHEN COMPARED WITH ECG OF 11-SEP-2016 21:29, NO SIGNIFICANT CHANGE WAS FOUND Confirmed by VINCE DC MD ([id number]) on 07/15/2017 10:25:25 AM Referred By: Confirmed By:VINCE DC MD
[2017-07-15 10:26] LABS: SGOT/AST 14 U/L (15-37)
[2017-07-15] MEDS: PRENATAL VITAMINS W/ FOLIC ACID TABLET (FP) PO SCH (10:55)
[2017-07-15] MEDS: NICOTINE 14 MG/24 HOURS TOPICAL PATCH TD SCH (10:55)
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
[2017-07-15] MEDS ORDERED: FLU VACCINE QUAD 60 MCG/0.5 ML (MDV 17-18) IM ONE (12:00)
[2017-07-15 13:45] LABS: HIV 1 & 2 AB NEGATIVE; HIV 1 AGp24 NEGATIVE
[2017-07-15 18:01] LABS: URINE LEUK ESTERASE Negative (NEGATIVE)
[2017-07-15] MEDS: traZODone HCL 100 MG TABLET (FP) PO SCH (21:12)
[2017-07-15] MEDS: THIAMINE HCL 100 MG TABLET (FP) PO SCH (21:12)
[2017-07-16] MEDS ORDERED: METHADONE HCL 10 MG TABLET ONE (03:16)
[2017-07-16] MEDS ORDERED: METHADONE HCL 40 MG DISPERSABLE TABLET ONE (03:17)
[2017-07-16] MEDS: METHADONE 80 MG, METHADONE 10 MG PO SCH (06:34)
[2017-07-16] MEDS: hydrOXYzine PAMOATE 50 MG CAPSULE (FP) PO PRN ×3 (06:36→21:06)
[2017-07-16] MEDS: NICOTINE 14 MG/24 HOURS TOPICAL PATCH TD SCH (10:02)
[2017-07-16] MEDS: PRENATAL VITAMINS W/ FOLIC ACID TABLET (FP) PO SCH (10:02)
[2017-07-16] MEDS: DOCUSATE SODIUM 100 MG CAPSULE (FP) PO PRN (10:03)
[2017-07-16] MEDS: THIAMINE HCL 100 MG TABLET (FP) PO SCH (21:06)
[2017-07-16] MEDS: traZODone HCL 100 MG TABLET (FP) PO SCH (21:06)
[2017-07-17] MEDS ORDERED: METHADONE HCL 10 MG TABLET ONE (03:15)
[2017-07-17] MEDS ORDERED: METHADONE HCL 40 MG DISPERSABLE TABLET ONE (03:16)
[2017-07-17] MEDS: hydrOXYzine PAMOATE 50 MG CAPSULE (FP) PO PRN ×3 (06:24→21:09)
[2017-07-17] MEDS: METHADONE 80 MG, METHADONE 10 MG PO SCH (06:24)
[2017-07-17] MEDS: DOCUSATE SODIUM 100 MG CAPSULE (FP) PO PRN (10:02)
[2017-07-17] MEDS: NICOTINE 14 MG/24 HOURS TOPICAL PATCH TD SCH (10:02)
[2017-07-17] MEDS: PRENATAL VITAMINS W/ FOLIC ACID TABLET (FP) PO SCH (10:02)
[2017-07-17] MEDS: traZODone HCL 100 MG TABLET (FP) PO SCH (21:09)
[2017-07-17] MEDS: THIAMINE HCL 100 MG TABLET (FP) PO SCH (21:09)
[2017-07-17] MEDS: DOCUSATE SODIUM 100 MG CAPSULE (FP) PO SCH (21:09)
[2017-07-18] MEDS ORDERED: METHADONE HCL 10 MG TABLET ONE (05:51)
[2017-07-18] MEDS ORDERED: METHADONE HCL 40 MG DISPERSABLE TABLET ONE (05:52)
[2017-07-18] MEDS: hydrOXYzine PAMOATE 50 MG CAPSULE (FP) PO PRN ×2 (06:47→21:10)
[2017-07-18] MEDS: METHADONE 80 MG, METHADONE 10 MG PO SCH (06:47)
[2017-07-18] MEDS: DOCUSATE SODIUM 100 MG CAPSULE (FP) PO SCH ×2 (09:39→21:11)
[2017-07-18] MEDS: PRENATAL VITAMINS W/ FOLIC ACID TABLET (FP) PO SCH (09:39)
[2017-07-18] MEDS: NICOTINE 14 MG/24 HOURS TOPICAL PATCH TD SCH (09:39)
[2017-07-18] MEDS: traZODone HCL 100 MG TABLET (FP) PO SCH (21:10)
[2017-07-18] MEDS: THIAMINE HCL 100 MG TABLET (FP) PO SCH (21:11)
[2017-07-18] MEDS ORDERED: PT OWN MED DRAWER 7, Y5N ONE (23:12)
[2017-07-19] MEDS ORDERED: METHADONE HCL 40 MG DISPERSABLE TABLET ONE (05:47)
[2017-07-19] MEDS ORDERED: METHADONE HCL 10 MG TABLET ONE (05:47)
[2017-07-19] MEDS: METHADONE 80 MG, METHADONE 10 MG PO SCH (06:54)
[2017-07-19] MEDS: hydrOXYzine PAMOATE 50 MG CAPSULE (FP) PO PRN ×2 (06:56→21:15)
[2017-07-19] MEDS: PRENATAL VITAMINS W/ FOLIC ACID TABLET (FP) PO SCH (09:47)
[2017-07-19] MEDS: NICOTINE 14 MG/24 HOURS TOPICAL PATCH TD SCH (09:48)
[2017-07-19] MEDS: DOCUSATE SODIUM 100 MG CAPSULE (FP) PO SCH ×2 (09:48→21:15)
[2017-07-19] MEDS: THIAMINE HCL 100 MG TABLET (FP) PO SCH (21:15)
[2017-07-19] MEDS: traZODone HCL 100 MG TABLET (FP) PO SCH (21:16)
[2017-07-20] MEDS ORDERED: METHADONE HCL 10 MG TABLET ONE (05:49)
[2017-07-20] MEDS ORDERED: METHADONE HCL 40 MG DISPERSABLE TABLET ONE (05:49)
[2017-07-20] MEDS: METHADONE 80 MG, METHADONE 10 MG PO SCH (06:37)
[2017-07-20] MEDS: hydrOXYzine PAMOATE 50 MG CAPSULE (FP) PO PRN ×3 (06:39→21:04)
[2017-07-20] MEDS: DOCUSATE SODIUM 100 MG CAPSULE (FP) PO SCH ×2 (10:12→21:04)
[2017-07-20] MEDS: PRENATAL VITAMINS W/ FOLIC ACID TABLET (FP) PO SCH (10:12)
[2017-07-20] MEDS: NICOTINE 14 MG/24 HOURS TOPICAL PATCH TD SCH (10:14)
[2017-07-20] MEDS ORDERED: NICOTINE POLACRILEX 4 MG GUM BUC PRN (12:27)
[2017-07-20] MEDS: IBUPROFEN 400 MG TABLET (FP) PO PRN (20:18)
[2017-07-20] MEDS ORDERED: PT OWN MED DRAWER 7, Y5N ONE (20:52)
[2017-07-20] MEDS ORDERED: ALBUTEROL SO4 18 GM HFA INHALER IH ONE (20:54)
[2017-07-20] MEDS: THIAMINE HCL 100 MG TABLET (FP) PO SCH (21:04)
[2017-07-20] MEDS: traZODone HCL 100 MG TABLET (FP) PO SCH (21:04)
[2017-07-21] MEDS ORDERED: METHADONE HCL 10 MG TABLET ONE (03:14)
[2017-07-21] MEDS ORDERED: METHADONE HCL 40 MG DISPERSABLE TABLET ONE (03:15)
[2017-07-21] MEDS: METHADONE 80 MG, METHADONE 10 MG PO SCH (06:35)
[2017-07-21] MEDS: hydrOXYzine PAMOATE 50 MG CAPSULE (FP) PO PRN ×2 (06:36→21:09)
[2017-07-21] MEDS: DOCUSATE SODIUM 100 MG CAPSULE (FP) PO SCH ×2 (10:03→21:09)
[2017-07-21] MEDS: NICOTINE 14 MG/24 HOURS TOPICAL PATCH TD SCH (10:03)
[2017-07-21] MEDS: PRENATAL VITAMINS W/ FOLIC ACID TABLET (FP) PO SCH (10:04)
[2017-07-21] MEDS: IBUPROFEN 400 MG TABLET (FP) PO PRN (17:13)
[2017-07-21] MEDS: traZODone HCL 100 MG TABLET (FP) PO SCH (21:09)
[2017-07-21] MEDS: THIAMINE HCL 100 MG TABLET (FP) PO SCH (21:09)
[2017-07-22] MEDS ORDERED: METHADONE HCL 10 MG TABLET ONE (05:58)
[2017-07-22] MEDS ORDERED: METHADONE HCL 40 MG DISPERSABLE TABLET ONE (05:58)
[2017-07-22] MEDS: IBUPROFEN 400 MG TABLET (FP) PO PRN ×2 (06:01→21:10)
[2017-07-22] MEDS: METHADONE 80 MG, METHADONE 10 MG PO SCH (06:02)
[2017-07-22] MEDS: hydrOXYzine PAMOATE 50 MG CAPSULE (FP) PO PRN ×3 (06:02→21:10)
[2017-07-22] MEDS: PRENATAL VITAMINS W/ FOLIC ACID TABLET (FP) PO SCH (10:17)
[2017-07-22] MEDS: NICOTINE 14 MG/24 HOURS TOPICAL PATCH TD SCH (10:17)
[2017-07-22] MEDS: DOCUSATE SODIUM 100 MG CAPSULE (FP) PO SCH ×2 (10:17→21:09)
--- NOTE | 2017-07-22 15:59 | PN ---
Psychiatric Progress Note Vital Signs: Vital Signs Period Temp Pulse Resp BP Sys/Calles Pulse Ox Last 24 Hr 97.5 F 74 18-18 109/73 Date of Session: 07/22/17 Chief Complaint:: Javed still having sleeping difficulties. HPI: Patient addressed Opioid dependence comorbid with Substance induced mood/ sleep disorder. ROS: unremarkable Current Medications: Active Medications Generic Name Dose Route Start Last Admin Trade Name Freq PRN Reason Stop Dose Admin Acetaminophen 650 mg 07/14/17 22:14 Tylenol - PO Q4H PRN PAIN Al Hydroxide/Mg Hydroxide 30 ml 07/14/17 22:14 Mylanta Oral Suspension - PO Q6H PRN DYSPEPSIA Docusate Sodium 200 mg 07/17/17 22:00 07/22/17 10:17 Colace - PO 200 mg BID MERARI Administration Eucalyptus/Menthol/Phenol/Sorbitol 1 each 07/14/17 22:14 Cepastat Lozenge - MM Q4H PRN SORE THROAT Guaifenesin 10 ml 07/14/17 22:14 Robitussin Dm - PO Q6H PRN COUGH Hydroxyzine Pamoate 50 mg 07/14/17 22:14 07/22/17 10:18 Vistaril - PO 50 mg Q4H PRN Administration AGITATION Ibuprofen 400 mg 07/14/17 22:14 07/22/17 06:01 Motrin - PO 400 mg Q6H PRN Administration SEVERE PAIN Loperamide HCl 4 mg 07/14/17 22:14 Imodium - PO Q6H PRN DIARRHEA Magnesium Citrate 300 ml 07/14/17 22:14 Citroma - PO Q48H PRN CONSTIPATION Magnesium Hydroxide 30 ml 07/14/17 22:14 Milk Of Magnesia - PO DAILY PRN CONSTIPATION Methadone HCl 80 mg/ Methadone 90 mg 07/22/17 06:00 07/22/17 06:02 HCl 10 mg PO 07/28/17 05:59 90 mg DAILY@0600 MERARI Administration Nicotine 14 mg 07/15/17 10:00 07/22/17 10:17 Nicoderm Patch - TD 14 mg DAILY MERARI Administration Nicotine Polacrilex 4 mg 07/20/17 12:27 Nicorette Gum - BUC Q2H PRN NICOTINE REPLACEMENT RX Multivit/Folic Acid/Iron 1 tab 07/15/17 10:00 07/22/17 10:17 Vitamins (Sjr) - PO 1 tab DAILY MERARI Administration Pseudoephedrine/Triprolidine 1 combo 07/14/17 22:14 Actifed - PO TID PRN NASAL CONGESTION Thiamine HCl 100 mg 07/15/17 22:00 07/21/17 21:09 Vitamin B1 - PO Not Given HS MERARI Trazodone HCl 150 mg 07/22/17 16:00 Desyrel - PO HS MERARI Current Side Effect: No Lab tests ordered: No Lab tests reviewed: Yes Provider note:: Chart was revuewed ,patient was seen today .She addressed ongoing sleeping difficulties,inability to fall asleep and interrupted sleep pattern.properties of trazodone has been discussed with the patient including side effects,benefits and dose adjustment.Trazodone 100 mg po hs will be adjusted to 150 mg po hs. Supportive therapy provided. Total face to face time:: 30 Mental Status Exam - Mental Status Exam Alert and Oriented to: Time, Place, Person Cognitive Function: Grossly Intact Patient Appearance: Well Groomed Mood: Anxious Affect: Mood Congruent Patient Behavior: Cooperative Speech Pattern: Clear Voice Loudness: Normal Thought Process: Intact, Goal Oriented Hallucinations: Denies Suicidal Ideation: Denies Homicidal Ideation: Denies Insight/Judgement: Fair Sleep: Difficulty falling asleep Appetite: Good Muscle strength/Tone: Normal Gait/Station: Normal Psychiatric Treatment Plan - Problem List (1) Nicotine dependence Current Visit: Yes Qualifiers: Nicotine product type: cigarettes Substance use status: uncomplicated Qualified Code(s): F17.210 - Nicotine dependence, cigarettes, uncomplicated (2) Opioid dependence Current Visit: Yes (3) Substance-induced sleep disorder Current Visit: Yes
[2017-07-22] MEDS: THIAMINE HCL 100 MG TABLET (FP) PO SCH (21:09)
[2017-07-22] MEDS: traZODone HCL 50 MG TABLET (FP) PO SCH (21:11)
[2017-07-23] MEDS ORDERED: METHADONE HCL 40 MG DISPERSABLE TABLET ONE (03:21)
[2017-07-23] MEDS ORDERED: METHADONE HCL 10 MG TABLET ONE (03:21)
[2017-07-23] MEDS: METHADONE 80 MG, METHADONE 10 MG PO SCH (06:33)
[2017-07-23] MEDS: hydrOXYzine PAMOATE 50 MG CAPSULE (FP) PO PRN ×3 (06:34→21:11)
[2017-07-23] MEDS: PRENATAL VITAMINS W/ FOLIC ACID TABLET (FP) PO SCH (09:55)
[2017-07-23] MEDS: NICOTINE 14 MG/24 HOURS TOPICAL PATCH TD SCH (09:55)
[2017-07-23] MEDS: DOCUSATE SODIUM 100 MG CAPSULE (FP) PO SCH ×2 (09:55→21:11)
[2017-07-23] MEDS: IBUPROFEN 400 MG TABLET (FP) PO PRN ×2 (12:13→21:13)
[2017-07-23] MEDS: THIAMINE HCL 100 MG TABLET (FP) PO SCH (21:11)
[2017-07-23] MEDS: traZODone HCL 50 MG TABLET (FP) PO SCH (21:11)
[2017-07-23] MEDS ORDERED: PT OWN MED DRAWER 7, Y5N ONE (23:11)
[2017-07-24] MEDS ORDERED: METHADONE HCL 10 MG TABLET ONE (05:45)
[2017-07-24] MEDS ORDERED: METHADONE HCL 40 MG DISPERSABLE TABLET ONE (05:46)
[2017-07-24] MEDS: hydrOXYzine PAMOATE 50 MG CAPSULE (FP) PO PRN ×3 (06:59→21:19)
[2017-07-24] MEDS: METHADONE 80 MG, METHADONE 10 MG PO SCH (07:00)
[2017-07-24] MEDS: NICOTINE 14 MG/24 HOURS TOPICAL PATCH TD SCH (10:26)
[2017-07-24] MEDS: DOCUSATE SODIUM 100 MG CAPSULE (FP) PO SCH ×2 (10:26→21:18)
[2017-07-24] MEDS: PRENATAL VITAMINS W/ FOLIC ACID TABLET (FP) PO SCH (10:26)
[2017-07-24] MEDS: IBUPROFEN 400 MG TABLET (FP) PO PRN (12:12)
[2017-07-24] MEDS: traZODone HCL 50 MG TABLET (FP) PO SCH (21:18)
[2017-07-24] MEDS: THIAMINE HCL 100 MG TABLET (FP) PO SCH (21:18)
[2017-07-24] MEDS ORDERED: PT OWN MED DRAWER 7, Y5N ONE (23:36)
[2017-07-25] MEDS ORDERED: METHADONE HCL 10 MG TABLET ONE (03:12)
[2017-07-25] MEDS ORDERED: METHADONE HCL 40 MG DISPERSABLE TABLET ONE (03:13)
[2017-07-25] MEDS: hydrOXYzine PAMOATE 50 MG CAPSULE (FP) PO PRN ×3 (06:51→21:17)
[2017-07-25] MEDS: METHADONE 80 MG, METHADONE 10 MG PO SCH (06:51)
[2017-07-25] MEDS: IBUPROFEN 400 MG TABLET (FP) PO PRN ×2 (06:54→21:19)
[2017-07-25] MEDS: PRENATAL VITAMINS W/ FOLIC ACID TABLET (FP) PO SCH (09:20)
[2017-07-25] MEDS: NICOTINE 14 MG/24 HOURS TOPICAL PATCH TD SCH (09:20)
[2017-07-25] MEDS: DOCUSATE SODIUM 100 MG CAPSULE (FP) PO SCH ×2 (09:20→21:15)
[2017-07-25] MEDS: THIAMINE HCL 100 MG TABLET (FP) PO SCH (21:15)
[2017-07-25] MEDS: traZODone HCL 50 MG TABLET (FP) PO SCH (21:17)
[2017-07-26] MEDS ORDERED: METHADONE HCL 10 MG TABLET ONE (03:06)
[2017-07-26] MEDS ORDERED: METHADONE HCL 40 MG DISPERSABLE TABLET ONE (03:06)
[2017-07-26] MEDS: hydrOXYzine PAMOATE 50 MG CAPSULE (FP) PO PRN ×3 (06:51→21:16)
[2017-07-26] MEDS: METHADONE 80 MG, METHADONE 10 MG PO SCH (06:51)
[2017-07-26] MEDS: IBUPROFEN 400 MG TABLET (FP) PO PRN ×3 (06:52→21:17)
[2017-07-26] MEDS: DOCUSATE SODIUM 100 MG CAPSULE (FP) PO SCH ×2 (09:32→21:16)
[2017-07-26] MEDS: NICOTINE 14 MG/24 HOURS TOPICAL PATCH TD SCH (09:32)
[2017-07-26] MEDS: PRENATAL VITAMINS W/ FOLIC ACID TABLET (FP) PO SCH (09:33)
[2017-07-26] MEDS: MAGNESIUM HYDROX 2400MG/30ML ORAL SUSPENSION 30 ML CUP PO PRN (09:33)
[2017-07-26] MEDS ORDERED: LIDOCAINE VISCOUS 2% ORAL/TOP 20 ML UNIT-DOSE CUP MM PRN (10:14)
[2017-07-26] MEDS: THIAMINE HCL 100 MG TABLET (FP) PO SCH (21:16)
[2017-07-26] MEDS: traZODone HCL 50 MG TABLET (FP) PO SCH (21:16)
[2017-07-27] MEDS ORDERED: METHADONE HCL 40 MG DISPERSABLE TABLET ONE (03:24)
[2017-07-27] MEDS ORDERED: METHADONE HCL 10 MG TABLET ONE (03:24)
[2017-07-27] MEDS: METHADONE 80 MG, METHADONE 10 MG PO SCH (06:37)
[2017-07-27] MEDS: hydrOXYzine PAMOATE 50 MG CAPSULE (FP) PO PRN ×2 (06:38→12:09)
[2017-07-27] MEDS: IBUPROFEN 400 MG TABLET (FP) PO PRN ×2 (06:38→12:09)
[2017-07-27] MEDS ORDERED: PT OWN MED DRAWER 7, Y5N ONE (08:26)
[2017-07-27] MEDS: PRENATAL VITAMINS W/ FOLIC ACID TABLET (FP) PO SCH (10:08)
[2017-07-27] MEDS: NICOTINE 14 MG/24 HOURS TOPICAL PATCH TD SCH (10:08)
[2017-07-27] MEDS: DOCUSATE SODIUM 100 MG CAPSULE (FP) PO SCH ×2 (10:09→21:06)
[2017-07-27] MEDS: MAGNESIUM HYDROX 2400MG/30ML ORAL SUSPENSION 30 ML CUP PO PRN (12:11)
[2017-07-27] MEDS ORDERED: MAG HYDROX/ALH/SMC/DPHA/LIDO 240 ML MOUTHWASH MM SCH (13:15)
[2017-07-27] MEDS ORDERED: METHADONE HCL 40 MG DISPERSABLE TABLET PO SCH (13:20)
--- NOTE | 2017-07-27 13:25 | PN ---
[facility] Progress Note (SOAP) Subjective: c/o r lower tooth pain/abscess, mm and ibuprofen not effective pain relief, also craving desire to use on inadequate methadone dose of 90mg usual dose 120mg Objective: 07/27/17 13:22 Vital Signs - 24 hr 07/27/17 07/27/17 03:30 06:50 Temperature 97.8 F Pulse Rate 77 Respiratory 18 18 Rate Blood Pressure 102/66 right lower jaw swelling and tenderness Laboratory Tests 07/14/17 07/15/17 07/15/17 22:51 06:00 06:00 WBC 9.8 RBC 4.42 Hgb 12.9 Hct 38.9 MCV 88.1 MCH 29.2 MCHC 33.2 RDW 14.8 Plt Count 334 MPV 9.4 Sodium 140 Potassium 3.8 Chloride 105 Carbon Dioxide 24 Anion Gap 11 BUN 12 Creatinine 0.8 Creat Clearance w eGFR > 60 Random Glucose 94 Calcium 8.1 L Total Bilirubin 0.3 D AST 14 L D ALT 14 Alkaline Phosphatase 80 D Total Protein 6.7 Albumin 3.4 Urine Color Dkyellow Urine Appearance Slcloudy Urine pH 5.0 Ur Specific [place] 1.026 Urine Protein Negative Urine Glucose (UA) Negative Urine Ketones Trace H Urine Blood Negative Urine Nitrite Negative Urine Bilirubin Negative Urine Urobilinogen Negative Ur Leukocyte Esterase Negative RPR Titer HIV 1&2 Antibody Screen HIV P24 Antigen 07/15/17 07/15/17 06:00 06:00 WBC RBC Hgb Hct MCV MCH MCHC RDW Plt Count MPV Sodium Potassium Chloride Carbon Dioxide Anion Gap BUN Creatinine Creat Clearance w eGFR Random Glucose Calcium Total Bilirubin AST ALT Alkaline Phosphatase Total Protein Albumin Urine Color Urine Appearance Urine pH Ur Specific [place] Urine Protein Urine Glucose (UA) Urine Ketones Urine Blood Urine Nitrite Urine Bilirubin Urine Urobilinogen Ur Leukocyte Esterase RPR Titer Nonreactive HIV 1&2 Antibody Screen Negative HIV P24 Antigen Negative Assessment: 07/27/17 13:23 1. dental caries - start amoxicillin 500mg tid, naprosyn atc for pain and mm, 2. opioid dependence - inadequate dosing, increase methadone to 100mg daily.
[2017-07-27] MEDS: AMOXICILLIN 500 MG CAPSULE (FP) PO SCH ×2 (14:55→21:05)
--- NOTE | 2017-07-27 16:46 | PN ---
Psychiatric Progress Note Vital Signs: Vital Signs Period Temp Pulse Resp BP Sys/Calles Pulse Ox Last 24 Hr 97.8 F 77 18-18 102/66 Date of Session: 07/27/17 Chief Complaint:: Javed nervious and it affects my sleep." HPI: Patient addressed Opioid dependence comorbid with Substance induced mood/ sleep disorder. ROS: Unremarkable. Current Medications: Active Medications Generic Name Dose Route Start Last Admin Trade Name Freq PRN Reason Stop Dose Admin Acetaminophen 650 mg 07/14/17 22:14 07/27/17 10:10 Tylenol - PO 650 mg Q4H PRN Administration PAIN Al Hydroxide/Mg Hydroxide 30 ml 07/14/17 22:14 Mylanta Oral Suspension - PO Q6H PRN DYSPEPSIA Amoxicillin 500 mg 07/27/17 14:00 07/27/17 14:55 Amoxicillin - PO 500 mg TID MERARI Administration Docusate Sodium 300 mg 07/27/17 22:00 Colace - PO HS MERARI Eucalyptus/Menthol/Phenol/Sorbitol 1 each 07/14/17 22:14 Cepastat Lozenge - MM Q4H PRN SORE THROAT Guaifenesin 10 ml 07/14/17 22:14 Robitussin Dm - PO Q6H PRN COUGH Hydroxyzine Pamoate 50 mg 07/14/17 22:14 07/27/17 12:09 Vistaril - PO 50 mg Q4H PRN Administration AGITATION Lidocaine HCl 20 ml 07/26/17 10:14 07/26/17 13:14 Xylocaine 2% Viscous Oral - MM 20 ml Q4HPO PRN Administration ORAL PAIN/MOUTH SORES Loperamide HCl 4 mg 07/14/17 22:14 Imodium - PO Q6H PRN DIARRHEA Magnesium Citrate 300 ml 07/14/17 22:14 Citroma - PO Q48H PRN CONSTIPATION Magnesium Hydroxide 30 ml 07/14/17 22:14 07/27/17 12:11 Milk Of Magnesia - PO 30 ml DAILY PRN Administration CONSTIPATION Methadone HCl 80 mg/ Methadone 100 mg 07/28/17 06:00 HCl 20 mg PO 08/03/17 05:59 DAILY@0600 MERARI Naproxen 500 mg 07/27/17 22:00 Naprosyn - PO BID MERARI Nicotine 14 mg 07/15/17 10:00 07/27/17 10:08 Nicoderm Patch - TD 14 mg DAILY MERARI Administration Nicotine Polacrilex 4 mg 07/20/17 12:27 Nicorette Gum - BUC Q2H PRN NICOTINE REPLACEMENT RX Multivit/Folic Acid/Iron 1 tab 07/15/17 10:00 07/27/17 10:08 Vitamins (Sjr) - PO 1 tab DAILY MERARI Administration Pseudoephedrine/Triprolidine 1 combo 07/14/17 22:14 Actifed - PO TID PRN NASAL CONGESTION Quetiapine Fumarate 50 mg 07/27/17 16:45 Seroquel - PO HS MERARI Quetiapine Fumarate 25 mg 07/28/17 10:00 Seroquel - PO BID@1000,1400 MERARI Senna 2 tab 07/27/17 22:00 Senna - PO HS MERARI Thiamine HCl 100 mg 07/15/17 22:00 07/26/17 21:16 Vitamin B1 - PO 100 mg HS MERARI Administration Current Side Effect: No Lab tests ordered: No Lab tests reviewed: Yes Provider note:: Chart was revuewed,patient was evaluated in my office due to ongoing sleeping difficulties and anxiety.Treatment plan including medication manbagaement has been discussed with the patient.Patient reports no response to Trazodone.Properties of Seroquel has been discussed with the patient including side effects,benefits and dose adjustment.Trazodone will be d/c,start Seroquel 25 mg po bid and 50 mg po hs.Supportive therapy provided. Total face to face time:: 30 Mental Status Exam - Mental Status Exam Alert and Oriented to: Time, Place, Person Cognitive Function: Grossly Intact Patient Appearance: Well Groomed Mood: Anxious Affect: Mood Congruent, Labile Patient Behavior: Cooperative Speech Pattern: Clear Voice Loudness: Normal Thought Process: Goal Oriented Thought Disorder: Not Present Hallucinations: Denies Suicidal Ideation: Denies Homicidal Ideation: Denies Insight/Judgement: Fair Sleep: Difficulty falling asleep Appetite: Good Muscle strength/Tone: Normal Gait/Station: Normal Psychiatric Treatment Plan - Problem List (1) Nicotine dependence Current Visit: Yes Qualifiers: Nicotine product type: cigarettes Substance use status: uncomplicated Qualified Code(s): F17.210 - Nicotine dependence, cigarettes, uncomplicated (2) Opioid dependence Current Visit: Yes (3) Substance-induced sleep disorder Current Visit: Yes
[2017-07-27] MEDS: SENNOSIDES 8.6MG TABLET (FP) PO SCH (21:05)
[2017-07-27] MEDS: QUEtiapine FUMARATE 50 MG TABLET PO SCH (21:05)
[2017-07-27] MEDS: NAPROXEN 500 MG TABLET (FP) PO SCH (21:05)
[2017-07-27] MEDS: THIAMINE HCL 100 MG TABLET (FP) PO SCH (21:06)
[2017-07-28] MEDS ORDERED: METHADONE HCL 10 MG TABLET ONE (05:53)
[2017-07-28] MEDS ORDERED: METHADONE HCL 40 MG DISPERSABLE TABLET ONE (05:53)
[2017-07-28] MEDS ORDERED: METHADONE HCL 10 MG TABLET PO SCH (06:00)
[2017-07-28] MEDS: AMOXICILLIN 500 MG CAPSULE (FP) PO SCH ×3 (06:42→21:49)
[2017-07-28] MEDS: METHADONE 80 MG, METHADONE 20 MG PO SCH (06:42)
[2017-07-28] MEDS: QUEtiapine FUMARATE 25 MG TABLET (FP) PO SCH ×2 (10:07→13:17)
[2017-07-28] MEDS: NAPROXEN 500 MG TABLET (FP) PO SCH ×2 (10:07→21:49)
[2017-07-28] MEDS: NICOTINE 14 MG/24 HOURS TOPICAL PATCH TD SCH (10:07)
[2017-07-28] MEDS: PRENATAL VITAMINS W/ FOLIC ACID TABLET (FP) PO SCH (10:07)
[2017-07-28] MEDS: SENNOSIDES 8.6MG TABLET (FP) PO SCH (21:49)
[2017-07-28] MEDS: DOCUSATE SODIUM 100 MG CAPSULE (FP) PO SCH (21:49)
[2017-07-28] MEDS: QUEtiapine FUMARATE 50 MG TABLET PO SCH (21:49)
[2017-07-28] MEDS: THIAMINE HCL 100 MG TABLET (FP) PO SCH (21:50)
[2017-07-29] MEDS ORDERED: METHADONE HCL 40 MG DISPERSABLE TABLET ONE (03:23)
[2017-07-29] MEDS ORDERED: METHADONE HCL 10 MG TABLET ONE (03:23)
[2017-07-29] MEDS: AMOXICILLIN 500 MG CAPSULE (FP) PO SCH ×3 (06:46→21:09)
[2017-07-29] MEDS: hydrOXYzine PAMOATE 50 MG CAPSULE (FP) PO PRN (06:46)
[2017-07-29] MEDS: METHADONE 80 MG, METHADONE 20 MG PO SCH (06:46)
[2017-07-29] MEDS: NICOTINE 14 MG/24 HOURS TOPICAL PATCH TD SCH (10:04)
[2017-07-29] MEDS: PRENATAL VITAMINS W/ FOLIC ACID TABLET (FP) PO SCH (10:04)
[2017-07-29] MEDS: QUEtiapine FUMARATE 25 MG TABLET (FP) PO SCH ×2 (10:04→13:05)
[2017-07-29] MEDS: NAPROXEN 500 MG TABLET (FP) PO SCH ×2 (10:04→21:09)
[2017-07-29] MEDS: SENNOSIDES 8.6MG TABLET (FP) PO SCH (21:09)
[2017-07-29] MEDS: DOCUSATE SODIUM 100 MG CAPSULE (FP) PO SCH (21:09)
[2017-07-29] MEDS: QUEtiapine FUMARATE 50 MG TABLET PO SCH (21:10)
[2017-07-29] MEDS: THIAMINE HCL 100 MG TABLET (FP) PO SCH (21:10)
[2017-07-30] MEDS ORDERED: METHADONE HCL 10 MG TABLET ONE (03:11)
[2017-07-30] MEDS ORDERED: METHADONE HCL 40 MG DISPERSABLE TABLET ONE (03:11)
[2017-07-30] MEDS: hydrOXYzine PAMOATE 50 MG CAPSULE (FP) PO PRN (06:31)
[2017-07-30] MEDS: AMOXICILLIN 500 MG CAPSULE (FP) PO SCH ×3 (06:31→21:47)
[2017-07-30] MEDS: METHADONE 80 MG, METHADONE 20 MG PO SCH (06:31)
[2017-07-30] MEDS: NAPROXEN 500 MG TABLET (FP) PO SCH ×2 (09:37→21:50)
[2017-07-30] MEDS: PRENATAL VITAMINS W/ FOLIC ACID TABLET (FP) PO SCH (09:37)
[2017-07-30] MEDS: NICOTINE 14 MG/24 HOURS TOPICAL PATCH TD SCH (09:38)
[2017-07-30] MEDS: QUEtiapine FUMARATE 25 MG TABLET (FP) PO SCH ×2 (09:38→13:03)
[2017-07-30] MEDS ORDERED: QUEtiapine FUMARATE 25 MG TABLET (FP) ONE (19:35)
[2017-07-30] MEDS ORDERED: PT OWN MED DRAWER 7, Y5N ONE ×2 (21:04→23:30)
[2017-07-30] MEDS: THIAMINE HCL 100 MG TABLET (FP) PO SCH (21:47)
[2017-07-30] MEDS: SENNOSIDES 8.6MG TABLET (FP) PO SCH (21:47)
[2017-07-30] MEDS: QUEtiapine FUMARATE 50 MG TABLET PO SCH (21:49)
[2017-07-30] MEDS: DOCUSATE SODIUM 100 MG CAPSULE (FP) PO SCH (21:50)
[2017-07-31] MEDS ORDERED: METHADONE HCL 40 MG DISPERSABLE TABLET ONE (03:19)
[2017-07-31] MEDS ORDERED: METHADONE HCL 10 MG TABLET ONE (03:19)
[2017-07-31] MEDS: METHADONE 80 MG, METHADONE 20 MG PO SCH (06:26)
[2017-07-31] MEDS: hydrOXYzine PAMOATE 50 MG CAPSULE (FP) PO PRN (06:27)
[2017-07-31] MEDS: AMOXICILLIN 500 MG CAPSULE (FP) PO SCH ×3 (06:27→21:05)
[2017-07-31] MEDS: NAPROXEN 500 MG TABLET (FP) PO SCH ×2 (09:58→21:06)
[2017-07-31] MEDS: PRENATAL VITAMINS W/ FOLIC ACID TABLET (FP) PO SCH (09:58)
[2017-07-31] MEDS: QUEtiapine FUMARATE 25 MG TABLET (FP) PO SCH ×3 (09:59→21:05)
[2017-07-31] MEDS: NICOTINE 14 MG/24 HOURS TOPICAL PATCH TD SCH (09:59)
--- NOTE | 2017-07-31 16:21 | PN ---
Psychiatric Progress Note Vital Signs: Vital Signs Period Temp Pulse Resp BP Sys/Calles Pulse Ox Last 24 Hr 97.8 F 61 16-18 106/70 Date of Session: 07/31/17 Chief Complaint:: My sleep is still a problem,and Javed anxious during the day." HPI: Patient addressed Opioid dependence comorbid with Substance induced mood/ sleep disorder. ROS: Unremarkable. Current Medications: Active Medications Generic Name Dose Route Start Last Admin Trade Name Freq PRN Reason Stop Dose Admin Acetaminophen 650 mg 07/14/17 22:14 07/27/17 10:10 Tylenol - PO 650 mg Q4H PRN Administration PAIN Al Hydroxide/Mg Hydroxide 30 ml 07/14/17 22:14 Mylanta Oral Suspension - PO Q6H PRN DYSPEPSIA Amoxicillin 500 mg 07/27/17 14:00 07/31/17 13:30 Amoxicillin - PO 500 mg TID MERARI Administration Docusate Sodium 300 mg 07/27/17 22:00 07/30/17 21:50 Colace - PO 300 mg HS MERARI Administration Eucalyptus/Menthol/Phenol/Sorbitol 1 each 07/14/17 22:14 Cepastat Lozenge - MM Q4H PRN SORE THROAT Guaifenesin 10 ml 07/14/17 22:14 Robitussin Dm - PO Q6H PRN COUGH Hydroxyzine Pamoate 50 mg 07/14/17 22:14 07/31/17 06:27 Vistaril - PO 50 mg Q4H PRN Administration AGITATION Lidocaine HCl 20 ml 07/26/17 10:14 07/26/17 13:14 Xylocaine 2% Viscous Oral - MM 20 ml Q4HPO PRN Administration ORAL PAIN/MOUTH SORES Loperamide HCl 4 mg 07/14/17 22:14 Imodium - PO Q6H PRN DIARRHEA Magnesium Citrate 300 ml 07/14/17 22:14 Citroma - PO Q48H PRN CONSTIPATION Magnesium Hydroxide 30 ml 07/14/17 22:14 07/27/17 12:11 Milk Of Magnesia - PO 30 ml DAILY PRN Administration CONSTIPATION Methadone HCl 80 mg/ Methadone 100 mg 07/28/17 06:00 07/31/17 06:26 HCl 20 mg PO 08/03/17 05:59 100 mg DAILY@0600 MERARI Administration Naproxen 500 mg 07/27/17 22:00 07/31/17 09:58 Naprosyn - PO 500 mg BID MERARI Administration Nicotine 14 mg 07/15/17 10:00 07/31/17 09:59 Nicoderm Patch - TD 14 mg DAILY MERARI Administration Nicotine Polacrilex 4 mg 07/20/17 12:27 Nicorette Gum - BUC Q2H PRN NICOTINE REPLACEMENT RX Multivit/Folic Acid/Iron 1 tab 07/15/17 10:00 07/31/17 09:58 Vitamins (Sjr) - PO 1 tab DAILY MERARI Administration Pseudoephedrine/Triprolidine 1 combo 07/14/17 22:14 Actifed - PO TID PRN NASAL CONGESTION Quetiapine Fumarate 50 mg 08/01/17 10:00 Seroquel - PO BID@1000,1400 MERARI Senna 2 tab 07/27/17 22:00 07/30/17 21:47 Senna - PO 2 tab HS MERARI Administration Thiamine HCl 100 mg 07/15/17 22:00 07/30/17 21:47 Vitamin B1 - PO 100 mg HS MERARI Administration Current Side Effect: No Lab tests ordered: No Lab tests reviewed: Yes Provider note:: Chart was revuewed,Patient was reevaluated in my office to address ongoing sleeping difficulties and anxiety.Properties of Seroquel has been discussed including side effect profile,benefits and dose adjustment.Seroquel 25 mg po bid will be adjusted to 50 mg po bid and 50 mg po hs will be adjusted to 75 mg po hs starting tonight. Supportive therapy provided. Total face to face time:: 30 Mental Status Exam - Mental Status Exam Alert and Oriented to: Time, Place, Person Cognitive Function: Grossly Intact Patient Appearance: Well Groomed Mood: Anxious Affect: Labile Patient Behavior: Cooperative Speech Pattern: Clear Voice Loudness: Normal Thought Process: Goal Oriented Thought Disorder: Not Present Hallucinations: Denies Suicidal Ideation: Denies Homicidal Ideation: Denies Insight/Judgement: Fair Sleep: Difficulty falling asleep Appetite: Good Muscle strength/Tone: Normal Gait/Station: Normal Psychiatric Treatment Plan - Problem List (1) Nicotine dependence Current Visit: Yes Qualifiers: Nicotine product type: cigarettes Substance use status: uncomplicated Qualified Code(s): F17.210 - Nicotine dependence, cigarettes, uncomplicated (2) Opioid dependence Current Visit: Yes (3) Substance-induced sleep disorder Current Visit: Yes
[2017-07-31] MEDS: DOCUSATE SODIUM 100 MG CAPSULE (FP) PO SCH (21:06)
[2017-07-31] MEDS: SENNOSIDES 8.6MG TABLET (FP) PO SCH (21:06)
[2017-07-31] MEDS: THIAMINE HCL 100 MG TABLET (FP) PO SCH (21:06)
[2017-08-01] MEDS ORDERED: METHADONE HCL 10 MG TABLET ONE (05:48)
[2017-08-01] MEDS ORDERED: METHADONE HCL 40 MG DISPERSABLE TABLET ONE (05:49)
[2017-08-01] MEDS: METHADONE 80 MG, METHADONE 20 MG PO SCH (06:35)
[2017-08-01] MEDS: AMOXICILLIN 500 MG CAPSULE (FP) PO SCH ×3 (06:35→21:16)
[2017-08-01] MEDS: hydrOXYzine PAMOATE 50 MG CAPSULE (FP) PO PRN (06:37)
[2017-08-01] MEDS: PRENATAL VITAMINS W/ FOLIC ACID TABLET (FP) PO SCH (09:38)
[2017-08-01] MEDS: NAPROXEN 500 MG TABLET (FP) PO SCH ×2 (09:38→21:16)
[2017-08-01] MEDS: NICOTINE 14 MG/24 HOURS TOPICAL PATCH TD SCH (09:38)
[2017-08-01] MEDS: QUEtiapine FUMARATE 50 MG TABLET PO SCH ×2 (09:39→13:45)
[2017-08-01] MEDS: DOCUSATE SODIUM 100 MG CAPSULE (FP) PO SCH (21:15)
[2017-08-01] MEDS: THIAMINE HCL 100 MG TABLET (FP) PO SCH (21:16)
[2017-08-01] MEDS: QUEtiapine FUMARATE 25 MG TABLET (FP) PO SCH (21:16)
[2017-08-01] MEDS: SENNOSIDES 8.6MG TABLET (FP) PO SCH (21:16)
[2017-08-02] MEDS ORDERED: METHADONE HCL 10 MG TABLET ONE (05:46)
[2017-08-02] MEDS ORDERED: METHADONE HCL 40 MG DISPERSABLE TABLET ONE (05:46)
[2017-08-02] MEDS: AMOXICILLIN 500 MG CAPSULE (FP) PO SCH ×3 (06:24→21:36)
[2017-08-02] MEDS: METHADONE 80 MG, METHADONE 20 MG PO SCH (06:24)
[2017-08-02] MEDS: hydrOXYzine PAMOATE 50 MG CAPSULE (FP) PO PRN (06:26)
[2017-08-02] MEDS: PRENATAL VITAMINS W/ FOLIC ACID TABLET (FP) PO SCH (09:40)
[2017-08-02] MEDS: QUEtiapine FUMARATE 50 MG TABLET PO SCH ×2 (09:40→14:50)
[2017-08-02] MEDS: NAPROXEN 500 MG TABLET (FP) PO SCH ×2 (09:40→21:36)
[2017-08-02] MEDS: NICOTINE 14 MG/24 HOURS TOPICAL PATCH TD SCH (09:41)
[2017-08-02] MEDS: DOCUSATE SODIUM 100 MG CAPSULE (FP) PO SCH (21:35)
[2017-08-02] MEDS: SENNOSIDES 8.6MG TABLET (FP) PO SCH (21:35)
[2017-08-02] MEDS: QUEtiapine FUMARATE 25 MG TABLET (FP) PO SCH (21:35)
[2017-08-02] MEDS: THIAMINE HCL 100 MG TABLET (FP) PO SCH (21:36)
[2017-08-03] MEDS ORDERED: METHADONE HCL 10 MG TABLET ONE (06:14)
[2017-08-03] MEDS ORDERED: METHADONE HCL 40 MG DISPERSABLE TABLET ONE (06:15)
[2017-08-03] MEDS: METHADONE 80 MG, METHADONE 20 MG PO SCH (06:30)
[2017-08-03] MEDS: hydrOXYzine PAMOATE 50 MG CAPSULE (FP) PO PRN (06:31)
[2017-08-03] MEDS: AMOXICILLIN 500 MG CAPSULE (FP) PO SCH ×3 (06:31→21:09)
[2017-08-03] MEDS ORDERED: QUEtiapine FUMARATE 25 MG TABLET (FP) ONE (08:30)
[2017-08-03] MEDS: QUEtiapine FUMARATE 50 MG TABLET PO SCH ×2 (09:52→13:09)
[2017-08-03] MEDS: PRENATAL VITAMINS W/ FOLIC ACID TABLET (FP) PO SCH (09:52)
[2017-08-03] MEDS: NAPROXEN 500 MG TABLET (FP) PO SCH ×2 (09:52→21:09)
[2017-08-03] MEDS: NICOTINE 14 MG/24 HOURS TOPICAL PATCH TD SCH (09:53)
--- NOTE | 2017-08-03 11:46 | PN ---
Psychiatric Progress Note Vital Signs: Vital Signs Period Temp Pulse Resp BP Sys/Calles Pulse Ox Last 24 Hr 97.8 F 88 18-18 111/74 Date of Session: 08/03/17 Chief Complaint:: Discharge visit. HPI: Patient addressed Opioid dependence comobid with Substance induced mood/ sleep disorder. Current Medications: Active Medications Generic Name Dose Route Start Last Admin Trade Name Freq PRN Reason Stop Dose Admin Acetaminophen 650 mg 07/14/17 22:14 07/27/17 10:10 Tylenol - PO 650 mg Q4H PRN Administration PAIN Al Hydroxide/Mg Hydroxide 30 ml 07/14/17 22:14 Mylanta Oral Suspension - PO Q6H PRN DYSPEPSIA Amoxicillin 500 mg 07/27/17 14:00 08/03/17 06:31 Amoxicillin - PO 500 mg TID MERARI Administration Docusate Sodium 300 mg 07/27/17 22:00 08/02/17 21:35 Colace - PO 300 mg HS MERARI Administration Eucalyptus/Menthol/Phenol/Sorbitol 1 each 07/14/17 22:14 Cepastat Lozenge - MM Q4H PRN SORE THROAT Guaifenesin 10 ml 07/14/17 22:14 Robitussin Dm - PO Q6H PRN COUGH Hydroxyzine Pamoate 50 mg 07/14/17 22:14 08/03/17 06:31 Vistaril - PO 50 mg Q4H PRN Administration AGITATION Lidocaine HCl 20 ml 07/26/17 10:14 07/26/17 13:14 Xylocaine 2% Viscous Oral - MM 20 ml Q4HPO PRN Administration ORAL PAIN/MOUTH SORES Loperamide HCl 4 mg 07/14/17 22:14 Imodium - PO Q6H PRN DIARRHEA Magnesium Citrate 300 ml 07/14/17 22:14 Citroma - PO Q48H PRN CONSTIPATION Magnesium Hydroxide 30 ml 07/14/17 22:14 07/27/17 12:11 Milk Of Magnesia - PO 30 ml DAILY PRN Administration CONSTIPATION Methadone HCl 80 mg/ Methadone 100 mg 08/03/17 06:00 08/03/17 06:30 HCl 20 mg PO 100 mg DAILY@0600 MERARI Administration Naproxen 500 mg 07/27/17 22:00 08/03/17 09:52 Naprosyn - PO 500 mg BID MERARI Administration Nicotine 14 mg 07/15/17 10:00 08/03/17 09:53 Nicoderm Patch - TD 14 mg DAILY MERARI Administration Nicotine Polacrilex 4 mg 07/20/17 12:27 Nicorette Gum - BUC Q2H PRN NICOTINE REPLACEMENT RX Multivit/Folic Acid/Iron 1 tab 07/15/17 10:00 08/03/17 09:52 Vitamins (Sjr) - PO 1 tab DAILY MERARI Administration Pseudoephedrine/Triprolidine 1 combo 07/14/17 22:14 Actifed - PO TID PRN NASAL CONGESTION Quetiapine Fumarate 50 mg 08/01/17 10:00 08/03/17 09:52 Seroquel - PO 50 mg BID@1000,1400 MERARI Administration Quetiapine Fumarate 75 mg 07/31/17 22:00 08/02/17 21:35 Seroquel - PO 75 mg HS MERARI Administration Senna 2 tab 07/27/17 22:00 08/02/17 21:35 Senna - PO 2 tab HS MERARI Administration Thiamine HCl 100 mg 07/15/17 22:00 08/02/17 21:36 Vitamin B1 - PO 100 mg HS MERARI Administration Current Side Effect: No Lab tests ordered: No Lab tests reviewed: Yes Provider note:: Patient will complete this program tomorrow 08/04/17.She has met her treatment goals and will continue to address her issues on outpatient bq[facility] at [facility].Patient reports finding that current medications:Seroquel 50 mg po bid and 75 mg po hs help to cope with mood instability,sleeping difficulties.Scripts for 30 days provided. supportive therapy provided focusing on insight gained during the treatment, importance of changing behaviors which contribute to relapse.Coping skills, support system utlization has been discussed with the patient as well as other resourses to maintain recovery. Patient is stable for discharge tomorrow . Total face to face time:: 30 Mental Status Exam - Mental Status Exam Alert and Oriented to: Time, Place, Person Cognitive Function: Grossly Intact Patient Appearance: Well Groomed Mood: Hopeful, Euthymic Affect: Appropriate, Mood Congruent Patient Behavior: Appropriate, Cooperative Speech Pattern: Clear Voice Loudness: Normal Thought Process: Goal Oriented Thought Disorder: Not Present Hallucinations: Denies Suicidal Ideation: Denies Homicidal Ideation: Denies Insight/Judgement: Fair Sleep: Fair Appetite: Good Muscle strength/Tone: Normal Gait/Station: Normal Psychiatric Treatment Plan - Problem List (1) Nicotine dependence Current Visit: Yes Qualifiers: Nicotine product type: cigarettes Substance use status: uncomplicated Qualified Code(s): F17.210 - Nicotine dependence, cigarettes, uncomplicated (2) Opioid dependence Current Visit: Yes (3) Substance-induced sleep disorder Current Visit: Yes
[2017-08-03] MEDS: THIAMINE HCL 100 MG TABLET (FP) PO SCH (21:08)
[2017-08-03] MEDS: DOCUSATE SODIUM 100 MG CAPSULE (FP) PO SCH (21:08)
[2017-08-03] MEDS: SENNOSIDES 8.6MG TABLET (FP) PO SCH (21:09)
[2017-08-03] MEDS: QUEtiapine FUMARATE 25 MG TABLET (FP) PO SCH (21:09)
[2017-08-04] MEDS ORDERED: METHADONE HCL 10 MG TABLET ONE (03:27)
[2017-08-04] MEDS ORDERED: METHADONE HCL 40 MG DISPERSABLE TABLET ONE (03:27)
[2017-08-04] MEDS: METHADONE 80 MG, METHADONE 20 MG PO SCH (06:35)
[2017-08-04 06:36] VITALS: BP 107/71; PULSE 79; TEMP 97.1
[2017-08-04] MEDS: hydrOXYzine PAMOATE 50 MG CAPSULE (FP) PO PRN (06:36)
[2017-08-04] MEDS: AMOXICILLIN 500 MG CAPSULE (FP) PO SCH (06:36)
[2017-08-04] MEDS: NAPROXEN 500 MG TABLET (FP) PO SCH (09:04)
[2017-08-04] MEDS: QUEtiapine FUMARATE 50 MG TABLET PO SCH (09:04)
[2017-08-04] MEDS: PRENATAL VITAMINS W/ FOLIC ACID TABLET (FP) PO SCH (09:04)
[2017-08-04] MEDS: NICOTINE 14 MG/24 HOURS TOPICAL PATCH TD SCH (09:05)
== END 2017-08-04 09:07 | disposition home or self-care (01) | DRG 772 ==
LOC: YASAS 19:36 → Y3E 22:26
PROVIDERS: ADMIT Psychiatry & Neurology Psychiatry; ATTEND Psychiatry & Neurology Psychiatry
PROC: HZ42ZZZ Group Counseling for Substance Abuse Treatment, Cognitive-Behavioral (ICD-10-PCS; principal; 2017-07-14)
DX: F11.20 Opioid dependence, uncomplicated (principal); F17.210 Nicotine dependence, cigarettes, uncomplicated; F19.282 Other psychoactive substance dependence with psychoactive substance-induced sleep disorder
CPT/HCPCS: 36415; 80053; 81003; 85027; 86593; 87389; 90688; 93005; 93010; G0008

== ENCOUNTER 2020-06-18 19:59 | Inpatient (IN) | payer OTHER ==
[2020-06-18 21:03] VITALS: BMI 28.0
--- NOTE | 2020-06-18 22:21 | HP ---
CIWA Score Nausea/Vomitin-No Nausea/No Vomiting Muscle Tremors: None Anxiety: 1-Mildly Anxious Agitation: 1-Slight > Activity Paroxysmal Sweats: No Perspiration Orientation: 3-Disoriented Date>2 days Tacttile Disturbances: 0-None Auditory Disturbances: 0-None Visual Disturbances: 0-None Headache: 0-None Present CIWA-Ar Total Score: 5 - Admission Criteria OASAS Guidelines: Admission for Medically Managed Detox: Requires at least one of the followin. CIWA greater than 12 2. Seizures within the past 24 hours 3. Delirium tremens within the past 24 hours 4. Hallucinations within the past 24 hours 5. Acute intervention needed for co occurring medical disorder 6. Acute intervention needed for co occurring psychiatric disorder 7. Severe withdrawal that cannot be handled at a lower level of care (continued vomiting, continued diarrhea, abnormal vital signs) requiring intravenous medication and/or fluids 8. Patient presents the following: None of the above Admission Criteria Met: Admission criteria not met Admitting History and Physical - Past Medical History ...LMP: 10/12/19 (Menstruating today) - Smoking History Smoking history: Current every day smoker Have you smoked in the past 12 months: Yes Aproximately how many cigarettes per day: 20 - Alcohol/Substance Use Hx Alcohol Use: Yes Admission ROS S - HPI Chief Complaint: SEEKING INPATIENT REHAB SERVICES FOR ALCOHOL ABUSE Allergies/Adverse Reactions: Allergies Allergy/AdvReac Type Severity Reaction Status Date / Time No Known Allergies Allergy Verified 10/18/19 23:15 History of Present Illness: HERE FOR ALCOHOL INPATIENT REHAB. KNOWN TO PROGRAM LAST HERE 2016. CLIENT IS REFERRED BY [facility] WHERE SHE IS ON MMTP REPORTED DOSE 120. LDM 1 DAY AGO. PENDING VERIFICATION. CLIENT REPORTS ALCOHOL ABUSE 2 TO 3 TIMES A WEEK. TAKING IN 1-2 BOTTLES OF WINE. REPORTS LAST USE OVER 24 HOURS AGO AND PREVIOUS TO THATS WAS 3 DAYS PRIOR. PRESENTS WITH MINIMAL WITHDRAWAL SX'S. UTOX + FELIX, FEN, THC, MTD. DENIES HX/O WITHDRAWA SZ, BLACK OUTS, HX/O IVDU BUT PRESENTLY DENIES. MOST RECENT CLEAN TIME 3 MONTHS RELAPSING 05/14/2020. LIVES W/ FAMILY, UNEMPLOYED, DENIES LEGALS Exam Limitations: No Limitations - Ebola screening Have you traveled outside of the country in the last 21 days: No Have you had contact with anyone from an Ebola affected area: No Have you been sick,other than usual withdrawal symptoms: No Do you have a fever: No - Review of Systems Constitutional: Loss of Appetite, Night Sweats, Changes in sleep, Unintentional Wgt. Loss EENT: reports: Dental Problems (MISSING TEETH) Respiratory: reports: Shortness of Breath Cardiac: reports: No Symptoms Reported GI: reports: No Symptoms Reported : reports: No Symptoms Reported Musculoskeletal: reports: Other (BODY ACHES) Integumentary: reports: No Symptoms Reported Neuro: reports: No Symptoms reported Endocrine: reports: No Symptoms Reported Hematology: reports: No Symptoms Reported Psychiatric: reports: Orientated x3, Depressed (DENIES SI/HI/AVH) Other Systems: Reviewed and Negative Patient History - Patient Medical History Hx Anemia: No Hx Asthma: No Hx Chronic Obstructive Pulmonary Disease (COPD): No Hx Cancer: No Hx Cardiac Disorders: No Hx Congestive Heart Failure: No Hx Hypertension: No Hx Hypercholesterolemia: No Hx Pacemaker: No HX Cerebrovascular Accident: No Hx Seizures: No Hx Dementia: No Hx Diabetes: No Hx Gastrointestinal Disorders: No Hx Liver Disease: No Hx Genitourinary Disorders: No Hx Sexually Transmitted Disorders: No Hx Renal Disease (ESRD): No Hx Thyroid Disease: No Hx Human Immunodeficiency Virus (HIV): No Hx Hepatitis C: No Hx Depression: Yes Hx Suicide Attempt: No Hx Bipolar Disorder: Yes Hx Schizophrenia: No Other Medical History: ANXIETY - Patient Surgical History Past Surgical History: Yes Hx Neurologic Surgery: No Hx Cataract Extraction: No Hx Cardiac Surgery: No Hx Lung Surgery: No Hx Breast Surgery: No Hx Breast Biopsy: No Hx Abdominal Surgery: No Hx Appendectomy: Yes (8 YEARS OLD) Hx Cholecystectomy: No Hx Genitourinary Surgery: No Hx Section: Yes (X 4) Other Surgical History: TUBAL LIGATION October. Anesthesia Reaction: No - PPD History Previous Implant?: Yes Documented Results: Negative w/proof Implanted On Prior [facility] Admission?: Yes Date: 07/17/17 Results: 0MM PPD to be Administered?: Yes - Reproductive History Patient is a Female of Child Bearing Age (11 -55 yrs old): Yes Last Menstrual Period: 04/20/20 Patient : Yes (NEG CG) - Smoking Cessation Smoking history: Current every day smoker Have you smoked in the past 12 months: Yes Aproximately how many cigarettes per day: 20 Cigars Per Day: 0 Hx Chewing Tobacco Use: No Initiated information on smoking cessation: Yes 'Breaking Loose' booklet given: 06/18/20 - Substance & Tx. History Hx Alcohol Use: Yes Hx Substance Use: Yes Substance Use Type: Alcohol, Cocaine, Heroin, Marijuana Hx Substance Use Treatment: Yes ([facility]) - Substances abused Alcohol Other (specify): WINE Substance route: Oral Frequency: 1-2 times per week Amount used: 1-2 BOTTLE Age of first use: 13 Date of last use: 06/17/20 Heroin Substance route: Inhalation Frequency: Daily Amount used: 2 BAGS Age of first use: 18 Date of last use: 06/18/20 Cocaine Substance route: Inhalation (AND SMOKING) Frequency: Daily Amount used: 200-400 DOLLARS Age of first use: 29 (1 MONTH) Date of last use: 06/18/20 Marijuana/Hashish Substance route: Smoking Frequency: 1-3 times last 30 days Amount used: 2 PUFFS Age of first use: 11 Date of last use: 06/18/20 Admission Physical Exam [facility] - Vital Signs Vital Signs: Vital Signs - 24 hr 06/18/20 21:02 Temperature 97.2 F L Pulse Rate 84 Respiratory 18 Rate Blood Pressure 109/74 - Physical General Appearance: Yes: Mild Distress, Irritable HEENTM: Yes: EOMI, Normocephalic, Normal Voice, STEVAN, Pharynx Normal, Other (dental carriers) Respiratory: Yes: Chest Non-Tender, No Respiratory Distress, No Accessory Muscle Use, Wheezing Neck: Yes: No masses,lesions,Nodules, Supple, Trachea in good position Breast: Yes: Breasts Symetrical Cardiology: Yes: Regular Rhythm, Regular Rate, S1, S2 Abdominal: Yes: Normal Bowel Sounds, Non Tender, Soft, Surgical Scar Genitourinary: Yes: Within Normal Limits Back: Yes: Normal Inspection Musculoskeletal: Yes: full range of Motion, Gait Steady Extremities: Yes: Normal Capillary Refill, Normal Inspection, Normal Range of Motion, Non-Tender Neurological: Yes: Fully Oriented, Alert, Motor Strength 5/5, Normal Mood/Affect Integumentary: Yes: Dry, Warm, Track Reeder (blue reeder to both arms. client states broken vessels) Lymphatic: Yes: Within Normal Limits - Diagnostic (1) Alcohol dependence, uncomplicated Current Visit: Yes Status: Chronic (2) Cocaine dependence, uncomplicated Current Visit: Yes Status: Chronic (3) Cannabis dependence, uncomplicated Current Visit: Yes Status: Chronic (4) Methadone maintenance therapy patient Current Visit: Yes Status: Chronic (5) Nicotine dependence Current Visit: Yes Status: Chronic Qualifiers: Nicotine product type: cigarettes Substance use status: uncomplicated Qualified Code(s): F17.210 - Nicotine dependence, cigarettes, uncomplicated (6) Substance-induced sleep disorder Current Visit: Yes Status: Chronic (7) Depression (emotion) Current Visit: Yes Status: Suspected Qualifiers: Depression Type: dysthymia Qualified Code(s): F34.1 - Dysthymic disorder Cleared for Admission [facility] - Detox or Rehab Detox Regimen/Protocol: Not Applicable Claeared for Rehab Admission: Yes Breathalyzer - Breathalyzer Breathalyzer: 0 Urine Drug Screen - Test Device Lot number: [id number] Expiration date: 12/13/21 - Control Is test valid?: Yes - Results Drug screen NEGATIVE: No Urine drug screen results: THC-Marijuana, FELIX-Cocaine, FEN-Fentanyl, MTD- Methadone Inpatient Rehab Admission - Rehab Decision to Admit Inpatient rehab admission?: Yes - Initial Determination Are CD services needed?: Yes Free of communicable disease: Yes Not in need of hospitalization: Yes - Rehab Admission Criteria Previous failed treatment: Yes Poor recovery environment: Yes Comorbidities: Yes Lacks judgement: No Patient is meeting Inpatient Rehab admission criteria:: Yes
[2020-06-19] MEDS ORDERED: IBUPROFEN 400 MG TABLET (FP) PO PRN (00:03)
[2020-06-19] MEDS ORDERED: MAG HYDROX/AL HYDROX/SIMETH 30 ML UNIT-DOSE CUP PO PRN (00:03)
[2020-06-19] MEDS ORDERED: P-EPHED 60MG/TRIPROLIDI 2.5MG TABLET PO PRN (00:03)
[2020-06-19] MEDS ORDERED: ACETAMINOPHEN 325 MG TABLET (FP) PO PRN (00:03)
[2020-06-19] MEDS ORDERED: MAGNESIUM HYDROX 2400MG/30ML ORAL SUSPENSION 30 ML CUP PO PRN (00:03)
[2020-06-19] MEDS ORDERED: hydrOXYzine PAMOATE 25 MG CAPSULE (FP) PO PRN (00:03)
[2020-06-19] MEDS ORDERED: MAGNESIUM CITRATE 300 ML BOTTLE PO PRN (00:03)
[2020-06-19] MEDS ORDERED: LOPERAMIDE HCL 2 MG CAPSULE PO PRN (00:03)
[2020-06-19] MEDS ORDERED: guaiFENesin 200 MG/10 ML 10 ML UNIT-DOSE CUPS PO PRN (00:03)
[2020-06-19] MEDS: METHADONE HCL 40 MG DISPERSABLE TABLET PO SCH (06:58)
[2020-06-19] MEDS: PRENATAL VITAMINS W/ FOLIC ACID TABLET (FP) PO SCH (09:22)
[2020-06-19] MEDS ORDERED: NICOTINE 14 MG/24 HOURS TOPICAL PATCH TD SCH ×2 (10:00)
--- NOTE | 2020-06-19 10:09 | EKG ---
Test Reason : Blood Pressure : / mmHG Vent. Rate : 068 BPM Atrial Rate : 068 BPM P-R Int : 130 ms QRS Dur : 090 ms QT Int : 426 ms P-R-T Axes : 061 057 040 degrees QTc Int : 452 ms NORMAL SINUS RHYTHM NORMAL ECG WHEN COMPARED WITH ECG OF 15-JUL-2017 07:50, NO SIGNIFICANT CHANGE WAS FOUND Confirmed by MD Li Daniel ([id number]) on 06/19/2020 10:09:26 AM Referred By: Elias Perez Confirmed By:Jayme Li MD
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
[2020-06-19 11:52] LABS: HEMATOCRIT 41.3 % (32.4-45.2); HEMOGLOBIN 13.8 GM/dL (10.7-15.3); MCH 30.7 pg (25.7-33.7); MCHC 33.4 g/dl (32.0-36.0); MEAN CELL VOLUME 92.1 fl (80-96); MEAN PLT VOLUME 9.4 fl (7.5-11.1); PLATELET COUNT 310 K/MM3 (134-434); RBC 4.49 M/mm3 (3.60-5.2); RDW 14.3 % (11.6-15.6); WHITE BLOOD COUNT 8.1 K/mm3 (4.0-10.0)
[2020-06-19 12:03] LABS: ALBUMIN 3.6 g/dl (3.4-5.0); BILIRUBIN,TOTAL 0.2 mg/dL (0.2-1); BLOOD UREA NITROGEN 16.7 mg/dL (7-18); CREATININE 0.8 mg/dL (0.55-1.3); POTASSIUM 4.3 mmol/L (3.5-5.1); TOT PROT 6.8 g/dl (6.4-8.2)
--- NOTE | 2020-06-19 12:07 | PN ---
[facility] Progress Note Note: Pt is a 29 y/o female admitted to rehab. Pt with [facility] on Methadone 120 mg po daily. PMHx:Asthma, Appendectomy at 8years old, Tubal ligation in 2010 x 4 Psych Hx:Anxiety, Depression Vital Signs - 24 hr 06/18/20 06/19/20 06/19/20 21:02 02:30 07:20 Temperature 97.2 F L 97.3 F L 96.7 F L Pulse Rate 84 66 71 Respiratory 18 18 16 Rate Blood Pressure 109/74 100/63 101/66 O2 Sat by Pulse 98 98 Oximetry (%) Laboratory Tests 06/18/20 06/18/20 06/19/20 21:04 22:40 07:00 WBC 8.1 RBC 4.49 Hgb 13.8 Hct 41.3 MCV 92.1 MCH 30.7 MCHC 33.4 RDW 14.3 D Plt Count 310 D MPV 9.4 D Sodium Potassium Chloride Carbon Dioxide Anion Gap BUN Creatinine Est GFR (CKD-EPI)AfAm Est GFR (CKD-EPI)NonAf Random Glucose Calcium Total Bilirubin AST ALT Alkaline Phosphatase Total Protein Albumin POC Urine HCG, Qual Negative SARS-CoV-2 (PCR) Negative 06/19/20 07:30 WBC RBC Hgb Hct MCV MCH MCHC RDW Plt Count MPV Sodium 142 Potassium 4.3 Chloride 109 H Carbon Dioxide 28 Anion Gap 5 L BUN 16.7 Creatinine 0.8 Est GFR (CKD-EPI)AfAm 113.86 Est GFR (CKD-EPI)NonAf 98.24 Random Glucose 86 Calcium 9.0 Total Bilirubin 0.2 AST 8 L ALT 19 Alkaline Phosphatase 70 Total Protein 6.8 Albumin 3.6 POC Urine HCG, Qual SARS-CoV-2 (PCR) Labs noted. Covid-19 negative Alert o x 3 nad oob ambulating with steady gait extremities:no edema,skin intact New rehab pt Increase po fluids maintain safety
[2020-06-19] MEDS ORDERED: NICOTINE 21 MG/24 HOURS TOPICAL PATCH TD SCH (12:13)
[2020-06-19 12:25] LABS: SICKLE CELL SCREEN NEGATIVE (NEGATIVE)
[2020-06-19] MEDS: QUEtiapine FUMARATE 25 MG TABLET PO SCH (18:03)
[2020-06-19] MEDS ORDERED: MELATONIN 5 MG TABLETS PO SCH (22:00)
[2020-06-19] MEDS ORDERED: QUEtiapine FUMARATE 100 MG TABLET (FP) PO SCH (22:00)
[2020-06-19] MEDS ORDERED: THIAMINE HCL 100 MG TABLET (FP) PO SCH (22:00)
[2020-06-19 23:35] LABS: EPI CELLS >36 /uL (0-25.1); HYALINE CASTS 14 /uL (0-3.1); URINE APPEARANCE CLOUDY; URINE BACTERIA 3793 /uL (0-1359); URINE BILIRUBIN NEGATIVE (NEGATIVE); URINE COLOR YELLOW; URINE GLUCOSE (UA) NEGATIVE (NEGATIVE); URINE KETONE TRACE (NEGATIVE); URINE LEUK ESTERASE 2+ (NEGATIVE); URINE NITRITE NEGATIVE (NEGATIVE); URINE PROTEIN NEGATIVE (NEGATIVE); URINE WBC 313 /uL (0-25.8)
[2020-06-20] MEDS: METHADONE HCL 40 MG DISPERSABLE TABLET PO SCH (06:52)
[2020-06-20 07:23] VITALS: BP 119/77; PULSE 63; TEMP 97.1
[2020-06-20] MEDS ORDERED: MASKS NR ONE (08:38)
[2020-06-20] MEDS: QUEtiapine FUMARATE 25 MG TABLET PO SCH (09:13)
[2020-06-20] MEDS: PRENATAL VITAMINS W/ FOLIC ACID TABLET (FP) PO SCH (09:13)
--- NOTE | 2020-06-20 09:48 | DS ---
[facility] Rehab Discharge Summary - [facility] Rehab Discharge Summary Admission Date: 06/19/20 Discharge Date: 06/20/20 - History Present History: Alcohol dependence, Cannabis dependence, Cocaine dependence, MMTP ([facility]-M[facility]) Pertinent Past History: Dental Carries Constipation Mood Disorder - Discharge Physical Exam Vital Signs: Vital Signs Temperature 97.1 F L 06/20/20 07:22 Pulse Rate 63 06/20/20 07:22 Respiratory Rate 20 06/20/20 07:22 Blood Pressure 119/77 06/20/20 07:22 O2 Sat by Pulse Oximetry (%) 100 06/20/20 07:22 General:WDWN female, alert o x 3, nad Neck:supple MSK:Active FROM, all limbs, oob ambulating with steady gait. Pertinent Admission Physical Exam Findings: Laboratory Tests 06/18/20 06/18/20 06/19/20 21:04 22:40 07:00 WBC 8.1 RBC 4.49 Hgb 13.8 Hct 41.3 MCV 92.1 MCH 30.7 MCHC 33.4 RDW 14.3 D Plt Count 310 D MPV 9.4 D Sickle Cell Screen Negative Sodium Potassium Chloride Carbon Dioxide Anion Gap BUN Creatinine Est GFR (CKD-EPI)AfAm Est GFR (CKD-EPI)NonAf Random Glucose Calcium Total Bilirubin AST ALT Alkaline Phosphatase Total Protein Albumin Urine Color Urine Appearance Urine pH Ur Specific Eliot Urine Protein Urine Glucose (UA) Urine Ketones Urine Blood Urine Nitrite Urine Bilirubin Urine Urobilinogen Ur Leukocyte Esterase Urine WBC (Auto) Urine RBC (Auto) Urine Casts (Auto) U Pathogenic Cast Auto U Epithel Cells (Auto) Urine Bacteria (Auto) POC Urine HCG, Qual Negative Syphilis Serology SARS-CoV-2 (PCR) Negative 06/19/20 06/19/20 06/19/20 07:30 07:30 20:30 WBC RBC Hgb Hct MCV MCH MCHC RDW Plt Count MPV Sickle Cell Screen Sodium 142 Potassium 4.3 Chloride 109 H Carbon Dioxide 28 Anion Gap 5 L BUN 16.7 Creatinine 0.8 Est GFR (CKD-EPI)AfAm 113.86 Est GFR (CKD-EPI)NonAf 98.24 Random Glucose 86 Calcium 9.0 Total Bilirubin 0.2 AST 8 L ALT 19 Alkaline Phosphatase 70 Total Protein 6.8 Albumin 3.6 Urine Color Yellow Urine Appearance Cloudy Urine pH 6.0 Ur Specific Eliot 1.033 Urine Protein Negative Urine Glucose (UA) Negative Urine Ketones Trace H Urine Blood Negative Urine Nitrite Negative Urine Bilirubin Negative Urine Urobilinogen 1.0 Ur Leukocyte Esterase 2+ H Urine WBC (Auto) 313 Urine RBC (Auto) 15.0 Urine Casts (Auto) 14 U Pathogenic Cast Auto U Epithel Cells (Auto) >36 Urine Bacteria (Auto) 3793 POC Urine HCG, Qual Syphilis Serology Non-reactive SARS-CoV-2 (PCR) Repeat UA and possibly UC pending collection this morning but pt declined stating she has no symptoms and is fine. Pt encouraged to increase po fluids/follow up with PCP. UA abnl-pt denies symptoms and states she will follow up with her primary care if she feels she needs it. copy of labs given to patient in discharge papers. - Treatment Discharge Condition: Discharge condition good, Rehabilitated safely, Outpatient referral accepted Hospital Course: Pt is a 29 y/o female admitted to rehab less than 48 hrs ago and declined to continue treatment stating "i have things to do". Pt harriedly wants to leave [facility]. Pt reports she has primary care at [address] [place] [address]. Pt is c onnected to [facility] on on Methadone 120 mg po daily. Pt met with counselling and has been referred to [facility] to follow up with CD aftercare. - Medication Discharge Medications: Ambulatory Orders Naproxen [Naprosyn -] 500 mg PO BID 10/04/19 Docusate Sodium [Colace -] 100 mg PO BIDAC PRN 06/19/20 Quetiapine Fumarate [Seroquel -] 75 mg PO BID@1000,1400 06/19/20 Quetiapine Fumarate [Seroquel -] 100 mg PO HS 06/19/20 traZODone HCL [Desyrel -] 150 mg PO HS 06/19/20 - Medication-Assisted Treatment (MAT) Medication-Assisted Treatment (MAT): No - Discharge Instructions Diet, activity, other medical instructions: Diet:Regular Activity:oob ad demian Other medical instructions:follow up with CD aftercare and PCP as recommended - Diagnosis (1) Alcohol dependence Current Visit: Yes Status: Chronic Qualifiers: Substance use status: uncomplicated Qualified Code(s): F10.20 - Alcohol dependence, uncomplicated (2) Cannabis dependence Current Visit: Yes Status: Chronic (3) Cocaine dependence Current Visit: Yes Status: Chronic Qualifiers: Substance use status: uncomplicated Qualified Code(s): F14.20 - Cocaine dependence, uncomplicated (4) Methadone maintenance therapy patient Current Visit: Yes Status: Chronic (5) Nicotine dependence Current Visit: Yes Status: Chronic Qualifiers: Nicotine product type: cigarettes Substance use status: uncomplicated Qualified Code(s): F17.210 - Nicotine dependence, cigarettes, uncomplicated (6) Non-compliance Current Visit: Yes Status: Acute - Follow-up Referral Minutes to complete discharge: 20 - AMA Did Patient Leave Against Medical Advice: Yes
== END 2020-06-20 09:25 | disposition left against medical advice (07) | DRG 770 ==
LOC: YASAS 19:59 → Y3E 06-19 01:14
PROVIDERS: ADMIT Allergy & Immunology; ATTEND Allergy & Immunology
PROC: HZ42ZZZ Group Counseling for Substance Abuse Treatment, Cognitive-Behavioral (ICD-10-PCS; principal; 2020-06-19)
DX: F10.20 Alcohol dependence, uncomplicated (principal); F14.20 Cocaine dependence, uncomplicated; F11.20 Opioid dependence, uncomplicated; F12.20 Cannabis dependence, uncomplicated; F17.210 Nicotine dependence, cigarettes, uncomplicated; F19.282 Other psychoactive substance dependence with psychoactive substance-induced sleep disorder; F19.24 Other psychoactive substance dependence with psychoactive substance-induced mood disorder; F31.9 Bipolar disorder, unspecified; F41.9 Anxiety disorder, unspecified; F34.1 Dysthymic disorder; F39 Unspecified mood [affective] disorder; J45.909 Unspecified asthma, uncomplicated; K59.00 Constipation, unspecified; K02.9 Dental caries, unspecified; R82.90 Unspecified abnormal findings in urine; Z91.410 Personal history of adult physical and sexual abuse; Z90.49 Acquired absence of other specified parts of digestive tract; Z98.51 Tubal ligation status; Z91.19 Patient's noncompliance with other medical treatment and regimen
CPT/HCPCS: 36415; 80053; 81003; 81025; 85027; 85660; 86780; 93005; 93010; C9803; U0003

== ENCOUNTER 2021-01-17 10:40 | Inpatient (IN) | payer OTHER ==
[2021-01-17 15:07] VITALS: BMI 27.4
[2021-01-17] MEDS ORDERED: ONDANSETRON *ODT* 4 MG TABLET SL PRN (15:07)
[2021-01-17] MEDS ORDERED: MENTHOL/PHENOL 1 EACH UD MM PRN (15:07)
[2021-01-17] MEDS ORDERED: IBUPROFEN 400 MG TABLET (FP) PO PRN (15:07)
[2021-01-17] MEDS ORDERED: ACETAMINOPHEN 325 MG TABLET (FP) PO PRN ×2 (15:07)
[2021-01-17] MEDS ORDERED: NICOTINE POLACRILEX 2 MG GUM BUC PRN (15:07)
[2021-01-17] MEDS ORDERED: MAG HYDROX/AL HYDROX/SIMETH 30 ML UNIT-DOSE CUP PO PRN (15:07)
[2021-01-17] MEDS ORDERED: BISMUTH SUBSALICYLATE 524 MG/30 ML UD PO PRN (15:07)
[2021-01-17] MEDS ORDERED: diazePAM 5 MG TABLET PO PRN (15:07)
[2021-01-17] MEDS ORDERED: MAGNESIUM CITRATE 300 ML BOTTLE PO PRN (15:07)
[2021-01-17] MEDS ORDERED: MAGNESIUM HYDROX 2400MG/30ML ORAL SUSPENSION 30 ML CUP PO PRN (15:07)
[2021-01-17] MEDS ORDERED: METHADONE HCL 10 MG TABLET (FOR DETOX USE ONLY) PO ONE (15:30)
[2021-01-17] MEDS: diazePAM 5 MG TABLET PO SCH ×2 (17:12→23:36)
[2021-01-17] MEDS: METHOCARBAMOL 500 MG TABLET PO PRN (17:13)
[2021-01-17] MEDS: hydrOXYzine PAMOATE 25 MG CAPSULE (FP) PO PRN (17:14)
[2021-01-17] MEDS: MELATONIN 5 MG TABLETS PO SCH (23:36)
[2021-01-17] MEDS: THIAMINE HCL 100 MG TABLET (FP) PO SCH (23:37)
[2021-01-18] MEDS: diazePAM 5 MG TABLET PO SCH (06:05)
[2021-01-18] MEDS ORDERED: METHADONE (DETOX) 20 MG, METHADONE (DETOX) 5 MG PO ONE (10:00)
[2021-01-18] MEDS ORDERED: METHADONE HCL 10 MG TABLET (FOR DETOX USE ONLY) ONE (10:20)
[2021-01-18] MEDS ORDERED: METHADONE HCL 5 MG TABLET (FOR DETOX USE ONLY) ONE (10:20)
[2021-01-18] MEDS: PRENATAL VITAMINS W/ FOLIC ACID TABLET (FP) PO SCH (10:27)
[2021-01-18] MEDS: NICOTINE 21 MG/24 HOURS TOPICAL PATCH TD SCH (10:27)
[2021-01-18] MEDS: chlordiazePOXIDE HCL 25 MG CAPSULE PO SCH ×3 (11:15→22:26)
[2021-01-18 11:35] LABS: HEMOGLOBIN 13.8 GM/dL (10.7-15.3); MCH 31.1 pg (25.7-33.7); MCHC 33.5 g/dl (32.0-36.0); MEAN CELL VOLUME 92.8 fl (80-96); PLATELET COUNT 344 K/MM3 (134-434); RBC 4.42 M/mm3 (3.60-5.2); RDW 14.4 % (11.6-15.6); WHITE BLOOD COUNT 8.1 K/mm3 (4.0-10.0)
[2021-01-18 11:44] LABS: ALBUMIN 3.5 g/dl (3.4-5.0); BLOOD UREA NITROGEN 12.6 mg/dL (7-18)
[2021-01-18 11:45] LABS: BILIRUBIN,TOTAL 0.4 mg/dL (0.2-1); TOT PROT 6.5 g/dl (6.4-8.2)
[2021-01-18 11:46] LABS: CALCIUM 8.7 mg/dL (8.5-10.1)
[2021-01-18 11:47] LABS: CREATININE 0.8 mg/dL (0.55-1.3)
[2021-01-18 12:33] LABS: HIV INTERPRETATION NEGATIVE (NEGATIVE)
[2021-01-18] MEDS: cloNIDine HCL 0.1 MG TABLET PO PRN (13:27)
[2021-01-18] MEDS: chlordiazePOXIDE HCL 25 MG CAPSULE PO PRN (15:11)
[2021-01-18] MEDS ORDERED: QUEtiapine FUMARATE 50 MG TABLET PO ONE (16:31)
[2021-01-18] MEDS: THIAMINE HCL 100 MG TABLET (FP) PO SCH (22:25)
[2021-01-18] MEDS: METHOCARBAMOL 500 MG TABLET PO PRN (22:26)
[2021-01-18] MEDS: QUEtiapine FUMARATE 100 MG TABLET (FP) PO SCH (22:26)
[2021-01-18] MEDS: MELATONIN 5 MG TABLETS PO SCH (22:26)
[2021-01-18] MEDS: hydrOXYzine PAMOATE 25 MG CAPSULE (FP) PO PRN (22:27)
[2021-01-19] MEDS ORDERED: diazePAM 5 MG TABLET PO SCH (06:00)
[2021-01-19] MEDS: chlordiazePOXIDE HCL 25 MG CAPSULE PO SCH ×4 (06:15→22:46)
[2021-01-19] MEDS: hydrOXYzine PAMOATE 25 MG CAPSULE (FP) PO PRN (06:16)
[2021-01-19] MEDS ORDERED: METHADONE HCL 10 MG TABLET (FOR DETOX USE ONLY) PO ONE (10:00)
[2021-01-19] MEDS ORDERED: QUEtiapine FUMARATE 25 MG TABLET PO SCH (10:00)
[2021-01-19] MEDS: PRENATAL VITAMINS W/ FOLIC ACID TABLET (FP) PO SCH (10:27)
[2021-01-19] MEDS: NICOTINE 21 MG/24 HOURS TOPICAL PATCH TD SCH (10:28)
[2021-01-19] MEDS: chlordiazePOXIDE HCL 25 MG CAPSULE PO PRN (12:49)
[2021-01-19] MEDS ORDERED: QUEtiapine FUMARATE 50 MG TABLET PO ONE (13:07)
[2021-01-19] MEDS: METHOCARBAMOL 500 MG TABLET PO PRN (17:37)
[2021-01-19] MEDS: cloNIDine HCL 0.1 MG TABLET PO PRN (17:44)
[2021-01-19] MEDS: MELATONIN 5 MG TABLETS PO SCH (22:45)
[2021-01-19] MEDS: THIAMINE HCL 100 MG TABLET (FP) PO SCH (22:45)
[2021-01-19] MEDS: QUEtiapine FUMARATE 100 MG TABLET (FP) PO SCH (22:45)
[2021-01-20] MEDS ORDERED: diazePAM 5 MG TABLET PO SCH (06:00)
[2021-01-20] MEDS: chlordiazePOXIDE HCL 25 MG CAPSULE PO SCH ×4 (06:13→22:07)
[2021-01-20] MEDS ORDERED: METHADONE HCL 10 MG TABLET (FOR DETOX USE ONLY) ONE (09:14)
[2021-01-20] MEDS ORDERED: METHADONE HCL 5 MG TABLET (FOR DETOX USE ONLY) ONE (09:15)
[2021-01-20] MEDS ORDERED: METHADONE (DETOX) 10 MG, METHADONE (DETOX) 5 MG PO ONE (10:00)
[2021-01-20] MEDS: NICOTINE 21 MG/24 HOURS TOPICAL PATCH TD SCH (10:07)
[2021-01-20] MEDS: PRENATAL VITAMINS W/ FOLIC ACID TABLET (FP) PO SCH (10:08)
[2021-01-20] MEDS: QUEtiapine FUMARATE 25 MG TABLET PO SCH ×2 (10:08→14:24)
[2021-01-20] MEDS: chlordiazePOXIDE HCL 25 MG CAPSULE PO PRN (13:54)
[2021-01-20] MEDS: METHOCARBAMOL 500 MG TABLET PO PRN (13:55)
[2021-01-20 14:07] LABS: SARS-CoV-2 NAA Not Detected (Not Detected)
[2021-01-20] MEDS: THIAMINE HCL 100 MG TABLET (FP) PO SCH (22:07)
[2021-01-20] MEDS: hydrOXYzine PAMOATE 25 MG CAPSULE (FP) PO PRN (22:07)
[2021-01-20] MEDS: MELATONIN 5 MG TABLETS PO SCH (22:07)
[2021-01-20] MEDS: QUEtiapine FUMARATE 100 MG TABLET (FP) PO SCH (22:07)
[2021-01-21] MEDS ORDERED: chlordiazePOXIDE HCL 10 MG CAPSULE PO PRN
[2021-01-21] MEDS: chlordiazePOXIDE HCL 10 MG CAPSULE PO SCH ×2 (05:48→10:06)
[2021-01-21] MEDS: hydrOXYzine PAMOATE 25 MG CAPSULE (FP) PO PRN (05:50)
[2021-01-21] MEDS ORDERED: diazePAM 5 MG TABLET PO ONE (06:00)
[2021-01-21 06:17] VITALS: PULSE 80
[2021-01-21 09:43] VITALS: BP 108/72; TEMP 97.1
[2021-01-21] MEDS: NICOTINE 21 MG/24 HOURS TOPICAL PATCH TD SCH (09:43)
[2021-01-21] MEDS: PRENATAL VITAMINS W/ FOLIC ACID TABLET (FP) PO SCH (09:43)
[2021-01-21] MEDS: QUEtiapine FUMARATE 25 MG TABLET PO SCH (09:43)
[2021-01-21] MEDS ORDERED: METHADONE HCL 10 MG TABLET (FOR DETOX USE ONLY) PO ONE (10:00)
[2021-01-22] MEDS ORDERED: chlordiazePOXIDE HCL 10 MG CAPSULE PO SCH (05:00)
[2021-01-22] MEDS ORDERED: METHADONE HCL 5 MG TABLET (FOR DETOX USE ONLY) PO ONE (06:00)
[2021-01-23] MEDS ORDERED: chlordiazePOXIDE HCL 10 MG CAPSULE PO ONE (05:00)
== END 2021-01-21 10:12 | disposition left against medical advice (07) | DRG 770 ==
LOC: YASAS 10:40 → Y3N 15:25
PROVIDERS: ADMIT Allergy & Immunology; ATTEND Allergy & Immunology
PROC: HZ2ZZZZ Detoxification Services for Substance Abuse Treatment (ICD-10-PCS; principal; 2021-01-17)
DX: F11.23 Opioid dependence with withdrawal (principal); F10.230 Alcohol dependence with withdrawal, uncomplicated; F14.20 Cocaine dependence, uncomplicated; F12.20 Cannabis dependence, uncomplicated; F17.210 Nicotine dependence, cigarettes, uncomplicated; F34.1 Dysthymic disorder; F43.10 Post-traumatic stress disorder, unspecified; G47.00 Insomnia, unspecified; Z62.810 Personal history of physical and sexual abuse in childhood; Z91.410 Personal history of adult physical and sexual abuse; Z91.19 Patient's noncompliance with other medical treatment and regimen
CPT/HCPCS: 36415; 80053; 81025; 85027; 86780; 87389; 90834-95; C9803; J0735; Q0162; U0003; U0005

== ENCOUNTER 2021-09-16 19:06 | Inpatient (IN) | payer OTHER ==
[2021-09-16] MEDS ORDERED: BISMUTH SUBSALICYLATE 524 MG/30 ML PO PRN (23:17)
[2021-09-16] MEDS ORDERED: DICYCLOMINE HCL 10 MG CAPSULE PO PRN (23:17)
[2021-09-16] MEDS ORDERED: MAG HYDROX/AL HYDROX/SIMETH 30 ML UNIT-DOSE CUP PO PRN (23:17)
[2021-09-16] MEDS ORDERED: MAGNESIUM CITRATE 300 ML BOTTLE PO PRN (23:17)
[2021-09-16] MEDS ORDERED: NICOTINE POLACRILEX 2 MG GUM BUC PRN (23:17)
[2021-09-16] MEDS ORDERED: MENTHOL/PHENOL 1 EACH UD MM PRN (23:17)
[2021-09-16] MEDS ORDERED: IBUPROFEN 400 MG TABLET (FP) PO PRN (23:17)
[2021-09-16] MEDS ORDERED: ONDANSETRON *ODT* 4 MG TABLET SL PRN (23:17)
[2021-09-16] MEDS ORDERED: MAGNESIUM HYDROX 2400MG/30ML ORAL SUSPENSION 30 ML CUP PO PRN (23:17)
[2021-09-16] MEDS ORDERED: P-EPHED 60MG/TRIPROLIDI 2.5MG TABLET PO PRN (23:17)
[2021-09-16] MEDS ORDERED: ACETAMINOPHEN 325 MG TABLET (FP) PO PRN ×2 (23:17)
[2021-09-17 02:50] VITALS: BMI 25.0
[2021-09-17 10:49] LABS: HEMATOCRIT 33.7 % (32.4-45.2); HEMOGLOBIN 11.6 GM/dL (10.7-15.3); MCH 30.9 pg (25.7-33.7); MCHC 34.3 g/dl (32.0-36.0); MEAN PLT VOLUME 8.4 fl (7.5-11.1); PLATELET COUNT 345 10^3/uL (134-434); RBC 3.75 M/mm3 (3.60-5.2); RDW 13.7 % (11.6-15.6); WHITE BLOOD COUNT 7.9 K/mm3 (4.0-10.0)
[2021-09-17] MEDS: METHOCARBAMOL 500 MG TABLET PO PRN (10:51)
[2021-09-17] MEDS: PRENATAL VITAMINS W/ FOLIC ACID TABLET (FP) PO SCH (10:51)
[2021-09-17] MEDS: hydrOXYzine PAMOATE 25 MG CAPSULE (FP) PO PRN (10:51)
[2021-09-17 11:24] LABS: BLOOD UREA NITROGEN 18.3 mg/dL (7-18); CALCIUM 8.6 mg/dL (8.5-10.1)
[2021-09-17 11:27] LABS: CREATININE 0.8 mg/dL (0.55-1.3)
[2021-09-17 11:29] LABS: TOT PROT 5.9 g/dl (6.4-8.2)
[2021-09-17 11:30] LABS: BILIRUBIN,TOTAL 0.4 mg/dL (0.2-1)
[2021-09-17] MEDS ORDERED: methaDONE HCL 10 MG TABLET (FOR DETOX USE ONLY) PO ONE (14:30)
[2021-09-17] MEDS ORDERED: methaDONE HCL 10 MG TABLET (FOR DETOX USE ONLY) ONE (15:10)
[2021-09-17] MEDS ORDERED: QUEtiapine FUMARATE 100 MG TABLET (FP) PO SCH (22:00)
[2021-09-17] MEDS ORDERED: MELATONIN 5 MG TABLETS PO SCH (22:00)
[2021-09-17] MEDS ORDERED: THIAMINE HCL 100 MG TABLET (FP) PO SCH (22:00)
[2021-09-18] MEDS: hydrOXYzine PAMOATE 25 MG CAPSULE (FP) PO PRN ×3 (06:34→18:24)
[2021-09-18] MEDS: cloNIDine HCL 0.1 MG TABLET PO PRN ×2 (06:34→18:25)
[2021-09-18] MEDS: METHOCARBAMOL 500 MG TABLET PO PRN ×2 (09:05→18:24)
[2021-09-18] MEDS: PRENATAL VITAMINS W/ FOLIC ACID TABLET (FP) PO SCH (09:18)
[2021-09-18] MEDS ORDERED: methaDONE HCL 10 MG TABLET (FOR DETOX USE ONLY) PO ONE (10:00)
[2021-09-18 13:16] VITALS: BP 106/60; PULSE 66; TEMP 97.8
[2021-09-20] MEDS ORDERED: methaDONE HCL 10 MG TABLET (FOR DETOX USE ONLY) PO ONE (10:00)
== END 2021-09-18 19:15 | disposition left against medical advice (07) | DRG 770 ==
LOC: YASAS 19:06 → Y6N 09-17 01:24
PROVIDERS: ADMIT Allergy & Immunology; ATTEND Allergy & Immunology
PROC: HZ2ZZZZ Detoxification Services for Substance Abuse Treatment (ICD-10-PCS; principal; 2021-09-17)
DX: F11.23 Opioid dependence with withdrawal (principal); F10.230 Alcohol dependence with withdrawal, uncomplicated; F14.20 Cocaine dependence, uncomplicated; F15.10 Other stimulant abuse, uncomplicated; F17.210 Nicotine dependence, cigarettes, uncomplicated; F43.10 Post-traumatic stress disorder, unspecified; F33.9 Major depressive disorder, recurrent, unspecified; F19.282 Other psychoactive substance dependence with psychoactive substance-induced sleep disorder; F19.280 Other psychoactive substance dependence with psychoactive substance-induced anxiety disorder; U07.1 COVID-19; Z62.810 Personal history of physical and sexual abuse in childhood; Z56.0 Unemployment, unspecified
CPT/HCPCS: 36415; 80053; 85027; 86780; C9803-CS; Q0162; U0003; U0005

== ENCOUNTER 2021-10-10 08:24 | Inpatient (IN) | payer OTHER ==
[2021-10-10] MEDS ORDERED: IBUPROFEN 400 MG TABLET (FP) PO PRN (09:04)
[2021-10-10] MEDS ORDERED: NICOTINE 10 MG CARTRIDGE (INHALER) IH PRN (09:04)
[2021-10-10] MEDS ORDERED: BUPRENORPHINE HCL 150 MCG, BUPRENORPHINE HCL 75 MCG BC ONE (09:04)
[2021-10-10] MEDS ORDERED: MAGNESIUM CITRATE 300 ML BOTTLE PO PRN (09:04)
[2021-10-10] MEDS ORDERED: cloNIDine HCL 0.1 MG TABLET PO ONE (09:04)
[2021-10-10] MEDS ORDERED: MENTHOL/PHENOL 1 EACH UD MM PRN (09:04)
[2021-10-10] MEDS ORDERED: MAG HYDROX/AL HYDROX/SIMETH 30 ML UNIT-DOSE CUP PO PRN (09:04)
[2021-10-10] MEDS ORDERED: METHOCARBAMOL 500 MG TABLET PO PRN (09:04)
[2021-10-10] MEDS ORDERED: MAGNESIUM HYDROX 2400MG/30ML ORAL SUSPENSION 30 ML CUP PO PRN (09:04)
[2021-10-10] MEDS ORDERED: BISMUTH SUBSALICYLATE 262 MG/15 ML BTL PO PRN (09:04)
[2021-10-10] MEDS ORDERED: ACETAMINOPHEN 325 MG TABLET (FP) PO PRN ×2 (09:04)
[2021-10-10] MEDS ORDERED: chlordiazePOXIDE HCL 25 MG CAPSULE PO PRN (09:04)
[2021-10-10] MEDS ORDERED: ONDANSETRON *ODT* 4 MG TABLET SL PRN (09:04)
[2021-10-10] MEDS ORDERED: BUPRENORPHINE HCL 150 MCG FILM BC ONE (09:37)
[2021-10-10] MEDS ORDERED: BUPRENORPHINE HCL 75 MCG FILM BC ONE (09:38)
[2021-10-10 09:40] VITALS: BMI 26.2
[2021-10-10] MEDS: hydrOXYzine PAMOATE 25 MG CAPSULE (FP) PO SCH ×4 (11:32→22:26)
[2021-10-10] MEDS: chlordiazePOXIDE HCL 25 MG CAPSULE PO SCH ×3 (11:33→22:26)
[2021-10-10] MEDS: PRENATAL VITAMINS W/ FOLIC ACID TABLET (FP) PO SCH (11:57)
[2021-10-10] MEDS ORDERED: cloNIDine HCL 0.1 MG TABLET PO PRN (13:05)
[2021-10-10 14:37] LABS: HEMOGLOBIN 12.1 GM/dL (10.7-15.3); MCH 29.6 pg (25.7-33.7); MCHC 33.6 g/dl (32.0-36.0); MEAN CELL VOLUME 88.1 fl (80-96); MEAN PLT VOLUME 7.5 fl (7.5-11.1); PLATELET COUNT 418 10^3/uL (134-434); RBC 4.09 M/mm3 (3.60-5.2); RDW 14.3 % (11.6-15.6); WHITE BLOOD COUNT 8.9 K/mm3 (4.0-10.0)
[2021-10-10 14:39] LABS: CALCIUM 9.3 mg/dL (8.5-10.1)
[2021-10-10 14:40] LABS: BLOOD UREA NITROGEN 16.3 mg/dL (7-18)
[2021-10-10 14:42] LABS: ALBUMIN 3.6 g/dl (3.4-5.0)
[2021-10-10 14:43] LABS: CREATININE 0.7 mg/dL (0.55-1.3)
[2021-10-10 14:44] LABS: BILIRUBIN,TOTAL 0.3 mg/dL (0.2-1)
[2021-10-10 14:48] LABS: TOT PROT 7.2 g/dl (6.4-8.2)
[2021-10-10] MEDS ORDERED: MELATONIN 5 MG TABLETS PO SCH (22:00)
[2021-10-10] MEDS ORDERED: THIAMINE HCL 100 MG TABLET (FP) PO SCH (22:00)
[2021-10-11] MEDS ORDERED: BUPRENORPHINE HCL 75 MCG FILM BC ONE (04:37)
[2021-10-11] MEDS ORDERED: BUPRENORPHINE HCL 150 MCG FILM BC ONE (04:37)
[2021-10-11] MEDS ORDERED: BUPRENORPHINE HCL 150 MCG, BUPRENORPHINE HCL 75 MCG BC SCH (06:00)
[2021-10-11] MEDS: chlordiazePOXIDE HCL 25 MG CAPSULE PO SCH ×3 (06:04→17:34)
[2021-10-11] MEDS: hydrOXYzine PAMOATE 25 MG CAPSULE (FP) PO SCH ×4 (06:05→17:34)
[2021-10-11 08:25] VITALS: PULSE 73
[2021-10-11] MEDS ORDERED: POTASSIUM CHLORIDE TABS 20 MEQ TABLET.ER (FP) PO ONE (11:40)
[2021-10-11] MEDS: PRENATAL VITAMINS W/ FOLIC ACID TABLET (FP) PO SCH (12:04)
[2021-10-11 18:58] VITALS: BP 108/65; TEMP 97
[2021-10-11] MEDS ORDERED: QUEtiapine FUMARATE 50 MG TABLET PO SCH (22:00)
[2021-10-12] MEDS ORDERED: chlordiazePOXIDE HCL 25 MG CAPSULE PO SCH (05:00)
[2021-10-12] MEDS ORDERED: BUPRENORPHINE HCL 450 MCG FILM BC SCH (06:00)
[2021-10-13] MEDS ORDERED: chlordiazePOXIDE HCL 10 MG CAPSULE PO PRN
[2021-10-13] MEDS ORDERED: chlordiazePOXIDE HCL 10 MG CAPSULE PO SCH (05:00)
[2021-10-13] MEDS ORDERED: BUPRENORPHINE/NALOXONE 4 MG/1 MG FILM PACKET SL SCH (06:00)
[2021-10-14] MEDS ORDERED: chlordiazePOXIDE HCL 10 MG CAPSULE PO SCH (05:00)
[2021-10-14] MEDS ORDERED: BUPRENORPHINE/NALOXONE 8 MG/2 MG FILM PACKET SL ONE (06:00)
[2021-10-15] MEDS ORDERED: chlordiazePOXIDE HCL 10 MG CAPSULE PO ONE (05:00)
== END 2021-10-11 18:45 | disposition left against medical advice (07) | DRG 770 ==
LOC: YASAS 08:24 → Y3N 09:48
PROVIDERS: ADMIT Allergy & Immunology; ATTEND Allergy & Immunology
PROC: HZ2ZZZZ Detoxification Services for Substance Abuse Treatment (ICD-10-PCS; principal; 2021-10-10)
DX: F11.23 Opioid dependence with withdrawal (principal); F10.230 Alcohol dependence with withdrawal, uncomplicated; F14.20 Cocaine dependence, uncomplicated; F12.20 Cannabis dependence, uncomplicated; F17.210 Nicotine dependence, cigarettes, uncomplicated; F19.280 Other psychoactive substance dependence with psychoactive substance-induced anxiety disorder; F19.282 Other psychoactive substance dependence with psychoactive substance-induced sleep disorder; F19.24 Other psychoactive substance dependence with psychoactive substance-induced mood disorder; F32.9 Major depressive disorder, single episode, unspecified; F43.10 Post-traumatic stress disorder, unspecified; Z62.810 Personal history of physical and sexual abuse in childhood; Z91.410 Personal history of adult physical and sexual abuse
CPT/HCPCS: 36415; 80053; 81025; 85027; 86780; C9803; U0003; U0005

== ENCOUNTER 2022-03-13 21:47 | Emergency (ER) | payer OTHER ==
[2022-03-13 22:06] VITALS: TEMP 98; BMI 20.1
[2022-03-14 05:32] LABS: PHENCYCLIDINE,URINE NEGATIVE (NEGATIVE); URINE BARBITURATES NEGATIVE (NEGATIVE)
[2022-03-14 05:52] VITALS: BP 103/59; PULSE 74
[2022-03-14 06:08] LABS: COCAINE, UR POSITIVE (NEGATIVE); METHADONE, UR POSITIVE (NEGATIVE); OPIATES, URI POSITIVE (NEGATIVE); URINE AMPHETAMINES POSITIVE (NEGATIVE); URINE BENZODIAZEPINES NEGATIVE (NEGATIVE)
== END 2022-03-14 05:52 | disposition home or self-care (01) ==
LOC: JER 21:47
DX: F11.20 Opioid dependence, uncomplicated (principal); T40.2X1A Poisoning by other opioids, accidental (unintentional), initial encounter
CPT/HCPCS: 80307; 84703; 99283-25

== ENCOUNTER 2022-04-30 10:55 | Inpatient (IN) | payer OTHER ==
[2022-04-30 12:55] VITALS: BMI 22.3
[2022-04-30] MEDS ORDERED: BISMUTH SUBSALICYLATE 524 MG/30 ML PO PRN (14:19)
[2022-04-30] MEDS ORDERED: MAGNESIUM HYDROX 2400MG/30ML ORAL SUSPENSION 30 ML CUP PO PRN (14:19)
[2022-04-30] MEDS ORDERED: chlordiazePOXIDE HCL 25 MG CAPSULE PO PRN (14:19)
[2022-04-30] MEDS ORDERED: MAGNESIUM CITRATE 300 ML BOTTLE PO PRN (14:19)
[2022-04-30] MEDS ORDERED: BENZOCAINE/MENTHOL (CHLORASEPTIC ) LOZENGE MM PRN (14:19)
[2022-04-30] MEDS ORDERED: NICOTINE 10 MG CARTRIDGE (INHALER) IH PRN (14:19)
[2022-04-30] MEDS ORDERED: IBUPROFEN 600 MG TABLET (FP) PO PRN (14:19)
[2022-04-30] MEDS ORDERED: ONDANSETRON *ODT* 4 MG TABLET SL PRN (14:19)
[2022-04-30] MEDS ORDERED: IBUPROFEN 400 MG TABLET (FP) PO PRN (14:19)
[2022-04-30] MEDS ORDERED: DICYCLOMINE HCL 10 MG CAPSULE PO PRN (14:19)
[2022-04-30] MEDS ORDERED: MAG HYDROX/AL HYDROX/SIMETH 30 ML UNIT-DOSE CUP PO PRN (14:19)
[2022-04-30] MEDS ORDERED: LOPERAMIDE HCL 2 MG CAPSULE PO PRN (14:19)
[2022-04-30] MEDS ORDERED: cloNIDine HCL 0.1 MG TABLET PO PRN (14:19)
[2022-04-30] MEDS ORDERED: ACETAMINOPHEN 325 MG TABLET (FP) PO PRN ×2 (14:19)
[2022-04-30] MEDS ORDERED: methaDONE HCL 10 MG TABLET (FOR DETOX USE ONLY) PO ONE (15:00)
[2022-04-30] MEDS: chlordiazePOXIDE HCL 25 MG CAPSULE PO SCH ×2 (19:04→23:28)
[2022-04-30] MEDS: hydrOXYzine PAMOATE 25 MG CAPSULE (FP) PO SCH ×2 (19:05→23:29)
[2022-04-30] MEDS: DOXYCYCLINE HYCLATE 100 MG TABLET PO SCH (19:05)
[2022-04-30] MEDS: THIAMINE HCL 100 MG TABLET (FP) PO SCH (23:29)
[2022-04-30] MEDS: MELATONIN 5 MG TABLETS PO SCH (23:29)
[2022-05-01] MEDS: hydrOXYzine PAMOATE 25 MG CAPSULE (FP) PO SCH ×5 (06:47→22:39)
[2022-05-01] MEDS: chlordiazePOXIDE HCL 25 MG CAPSULE PO SCH ×4 (06:47→22:11)
[2022-05-01] MEDS: DOXYCYCLINE HYCLATE 100 MG TABLET PO SCH ×2 (06:48→18:46)
[2022-05-01 10:10] LABS: HEMATOCRIT 31.5 % (32.4-45.2); HEMOGLOBIN 10.4 GM/dL (10.7-15.3); MCHC 32.9 g/dl (32.0-36.0); MEAN CELL VOLUME 82.1 fl (80-96); MEAN PLT VOLUME 7.3 fl (7.5-11.1); PLATELET COUNT 309 10^3/uL (134-434); RBC 3.84 M/mm3 (3.60-5.2); RDW 18.3 % (11.6-15.6); WHITE BLOOD COUNT 6.6 K/mm3 (4.0-10.0)
[2022-05-01 10:31] LABS: ALBUMIN 2.8 g/dl (3.4-5.0); CALCIUM 8.9 mg/dL (8.5-10.1)
[2022-05-01 10:32] LABS: BLOOD UREA NITROGEN 14.4 mg/dL (7-18)
[2022-05-01 10:34] LABS: CREATININE 0.7 mg/dL (0.55-1.3)
[2022-05-01 10:36] LABS: BILIRUBIN,TOTAL 0.2 mg/dL (0.2-1); TOT PROT 7.2 g/dl (6.4-8.2)
[2022-05-01] MEDS: PRENATAL VITAMINS W/ FOLIC ACID TABLET (FP) PO SCH (10:51)
[2022-05-01] MEDS: METHOCARBAMOL 500 MG TABLET PO PRN ×2 (10:51→22:10)
[2022-05-01 12:30] LABS: HIV INTERPRETATION NEGATIVE (NEGATIVE)
[2022-05-01] MEDS ORDERED: QUEtiapine FUMARATE 100 MG TABLET (FP) PO SCH (22:00)
[2022-05-01] MEDS: THIAMINE HCL 100 MG TABLET (FP) PO SCH (22:11)
[2022-05-01] MEDS: MELATONIN 5 MG TABLETS PO SCH (22:11)
[2022-05-02] MEDS: hydrOXYzine PAMOATE 25 MG CAPSULE (FP) PO SCH ×3 (06:54→15:28)
[2022-05-02] MEDS: chlordiazePOXIDE HCL 25 MG CAPSULE PO SCH ×2 (06:54→10:48)
[2022-05-02] MEDS: DOXYCYCLINE HYCLATE 100 MG TABLET PO SCH (06:55)
[2022-05-02] MEDS ORDERED: methaDONE HCL 10 MG TABLET (FOR DETOX USE ONLY) PO ONE (10:00)
[2022-05-02] MEDS: PRENATAL VITAMINS W/ FOLIC ACID TABLET (FP) PO SCH (10:47)
[2022-05-02] MEDS: METHOCARBAMOL 500 MG TABLET PO PRN (10:49)
[2022-05-02 12:47] VITALS: BP 94/61; PULSE 61; RESP 16; TEMP 97.7
[2022-05-02] MEDS ORDERED: LIDOCAINE 5% TOPICAL PATCH TP ONE (16:55)
[2022-05-02] MEDS ORDERED: QUEtiapine FUMARATE 50 MG TABLET PO ONE (16:56)
[2022-05-02] MEDS ORDERED: METHOCARBAMOL 500 MG TABLET PO PRN (16:56)
[2022-05-02] MEDS ORDERED: LIDOCAINE PATCH REMOVAL MC SCH (22:00)
[2022-05-03] MEDS ORDERED: chlordiazePOXIDE HCL 10 MG CAPSULE PO PRN
[2022-05-03] MEDS ORDERED: chlordiazePOXIDE HCL 10 MG CAPSULE PO SCH (05:00)
[2022-05-03] MEDS ORDERED: QUEtiapine FUMARATE 50 MG TABLET PO SCH (10:00)
[2022-05-04] MEDS ORDERED: chlordiazePOXIDE HCL 10 MG CAPSULE PO SCH (05:00)
[2022-05-04] MEDS ORDERED: methaDONE HCL 10 MG TABLET (FOR DETOX USE ONLY) PO ONE (10:00)
[2022-05-05] MEDS ORDERED: chlordiazePOXIDE HCL 10 MG CAPSULE PO ONE (05:00)
== END 2022-05-02 17:08 | disposition left against medical advice (07) | DRG 770 ==
LOC: YASAS 10:55 → Y3N 14:21
PROVIDERS: ADMIT Allergy & Immunology; ATTEND Surgery
PROC: HZ2ZZZZ Detoxification Services for Substance Abuse Treatment (ICD-10-PCS; principal; 2022-04-30)
DX: F11.23 Opioid dependence with withdrawal (principal); F10.230 Alcohol dependence with withdrawal, uncomplicated; F14.20 Cocaine dependence, uncomplicated; F12.20 Cannabis dependence, uncomplicated; F17.210 Nicotine dependence, cigarettes, uncomplicated; F31.9 Bipolar disorder, unspecified; F19.24 Other psychoactive substance dependence with psychoactive substance-induced mood disorder; F43.10 Post-traumatic stress disorder, unspecified; Z62.810 Personal history of physical and sexual abuse in childhood; Z91.410 Personal history of adult physical and sexual abuse; Z91.19 Patient's noncompliance with other medical treatment and regimen
CPT/HCPCS: 36415; 80053; 81025; 85027; 86780; 86803; 87389; 87522; 87811; C9803-CS; U0003; U0005

== ENCOUNTER 2024-04-23 23:14 | Emergency (ER) | payer OTHER ==
[2024-04-23 23:27] VITALS: BP 129/78; PULSE 69; RESP 18; TEMP 98; BMI 31.1
[2024-04-24] MEDS ORDERED: ACETAMINOPHEN 325 MG TABLET (FP) ONE (00:39)
[2024-04-24] MEDS ORDERED: IBUPROFEN 400 MG TABLET (FP) PO ONE (00:39)
[2024-04-24] MEDS: METOCLOPRAMIDE HCL INJECTION 10 MG/2 ML VIAL IVPB ONE (00:40)
[2024-04-24] MEDS: ACETAMINOPHEN 1000 MG/100 ML BAG IVPB ONE (00:40)
[2024-04-24] MEDS: IBUPROFEN 400 MG TABLET (FP) PO ONE (00:41)
[2024-04-24] MEDS: ACETAMINOPHEN 325 MG TABLET (FP) PO ONE (00:41)
[2024-04-24] MEDS: LACTATED RINGERS SOLUTION 1000 ML INFUS.BAG IV ONE (00:41)
== END 2024-04-24 01:23 | disposition left against medical advice (07) ==
LOC: JER 23:14
DX: R51.9 Headache, unspecified (principal)
CPT/HCPCS: 99283-25

== ENCOUNTER 2024-04-26 20:53 | Emergency (ER) | payer OTHER ==
[2024-04-26 21:02] VITALS: BP 150/87; PULSE 75; RESP 20; TEMP 97.7; BMI 32.0
[2024-04-26] MEDS ORDERED: ACETAMINOPHEN INJECTION 100 ML IVPB ONE (22:12)
[2024-04-26] MEDS ORDERED: METOCLOPRAMIDE HCL INJECTION 10 MG/2 ML VIAL ONE (22:12)
[2024-04-26] MEDS: ACETAMINOPHEN 1000 MG/100 ML BAG IVPB ONE (22:53)
[2024-04-26] MEDS: METOCLOPRAMIDE HCL INJECTION 10 MG/2 ML VIAL IVPB ONE (22:53)
[2024-04-26] MEDS: LACTATED RINGERS SOLUTION 1000 ML INFUS.BAG IV ONE (22:53)
== END 2024-04-27 00:22 | disposition home or self-care (01) ==
LOC: JER 20:53
PROC: 3E033NZ Introduction of Analgesics, Hypnotics, Sedatives into Peripheral Vein, Percutaneous Approach (ICD-10-PCS; principal; 2024-04-26)
PROC: 3E033GC Introduction of Other Therapeutic Substance into Peripheral Vein, Percutaneous Approach (ICD-10-PCS; 2024-04-26)
DX: G43.909 Migraine, unspecified, not intractable, without status migrainosus (principal); R11.0 Nausea
CPT/HCPCS: 96374; 96375; 99284-25; J0131